=== PATIENT | female | born 1980 | race Caucasian/White ===

== ENCOUNTER 2020-12-07 06:34 | Inpatient (IN) ==
[2020-12-05 16:30] LABS: Basophils % 0.4 % (0.0-0.8); Eosinophils # 0.4 10*3/uL (0.0-0.87); Eosinophils % 3.4 % (0.00-10.9); Hematocrit 35.9 VOL% (35.7-47.0); Hemoglobin 11.7 GM/DL (12.0-16.0); Immature Granulocytes % 0.5 %; Immature Granulocytes Absolute 0.06 #; Lymphocytes # 2.1 10*3/uL (1.4-4.0); Lymphocytes % 18.5 % (21.3-54.2); Mean Corpuscular HGB Conc 32.6 GM/DL (32-36); Mean Corpuscular Volume 84.9 FL (87-102); Mean Platelet Volume 10.5 FL (9.6-12.0); Monocytes % 8.7 % (1.7-12.7); Neutrophils % 68.5 % (38.7-73.9); Platelet Count 320 T/CUMM (130-400); Red Blood Count 4.23 MC/CUMM (3.8-5.5); Red Cell Distribution Width 12.5 % (9.3-17.3); White Blood Count 11.3 T/CUMM (4-12)
[2020-12-05 16:54] LABS: Calcium 8.6 MG/DL (8.5-10.1); Osmolality,Calculated 268.8 MOS/KG (273-304); Potassium 3.3 MMOL/L (3.5-5.1)
[2020-12-05 17:06] LABS: PT Patient Result 10.4 SECS (9.8-11.9); Partial Thromboplastin Time 34.5 SECS (23.9-33.8)
[~2020-12-07 06:34] MED LIST: VANCOMYCIN INJ 1,000 MG in SODIUM CHLORIDE 0.9% 250 ML IV ONE
[2020-12-07] MEDS ORDERED: DIAZEPAM 5 MG TABLET PO ONE (06:52)
[2020-12-07] MEDS ORDERED: GABAPENTIN 400 MG CAPSULE PO ONE (06:52)
[2020-12-07] MEDS ORDERED: ALBUTEROL 2.5 MG/3 ML NEB RESP TX ONE (06:52)
[2020-12-07] MEDS ORDERED: ACETAMINOPHEN 500 MG TABLET PO ONE (06:52)
[2020-12-07] MEDS ORDERED: FAMOTIDINE 20 MG TABLET PO ONE (06:52)
[2020-12-07] MEDS ORDERED: LACTATED RINGERS 1,000 ML IV SCH (07:00)
[2020-12-07] MEDS ORDERED: LIDOCAINE 2% 5 ML VIAL ONE (08:56)
[2020-12-07] MEDS ORDERED: propofoL 200 MG/20 ML VIAL IV ONE (08:56)
[2020-12-07] MEDS ORDERED: MIDAZOLAM 2 MG/2 ML VIAL ONE (08:56)
[2020-12-07] MEDS ORDERED: fentaNYL 100 MCG/2 ML VIAL ONE (08:56)
[2020-12-07] MEDS ORDERED: ONDANSETRON 4 MG/2 ML VIAL ONE (10:09)
[2020-12-07] MEDS ORDERED: HYDROmorphone 2 MG/1 ML VIAL ONE (10:11)
[2020-12-07] MEDS ORDERED: SEVOFLURANE 1 UNIT/15 MINUTE INH ONE (10:27)
[2020-12-07] MEDS ORDERED: ONDANSETRON 4 MG/2 ML VIAL IV PRN ×2 (10:34→11:18)
[2020-12-07] MEDS ORDERED: ACETAMINOPHEN 325 MG TABLET PO PRN (10:34)
[2020-12-07] MEDS ORDERED: hydrALAZINE 20 MG/1 ML VIAL ONE (11:01)
[2020-12-07] MEDS ORDERED: hydrALAZINE 20 MG/1 ML VIAL IV ONE ×2 (11:04→11:18)
[2020-12-07] MEDS ORDERED: HYDROmorphone 2 MG/1 ML VIAL IV PRN (11:18)
[2020-12-07] MEDS ORDERED: traMADol 50 MG TABLET PO PRN (13:16)
[2020-12-07] MEDS: CLINDAMYCIN INJ 900 MG in PREMIX 1 EACH IV SCH (16:06)
[2020-12-07] MEDS: HYDROmorphone 2 MG/1 ML VIAL IV PRN (22:05)
[2020-12-08] MEDS: LACTATED RINGERS 1,000 ML IV SCH ×3 (00:17→18:33)
[2020-12-08] MEDS: CLINDAMYCIN INJ 900 MG in PREMIX 1 EACH IV SCH (00:17)
[2020-12-08] MEDS: HYDROmorphone 2 MG/1 ML VIAL IV PRN ×4 (03:02→18:42)
[2020-12-08 08:42] LABS: Basophils % 0.3 % (0.0-0.8); Eosinophils # 0.3 10*3/uL (0.0-0.87); Eosinophils % 2.2 % (0.00-10.9); Hematocrit 35.1 VOL% (35.7-47.0); Hemoglobin 11.4 GM/DL (12.0-16.0); Immature Granulocytes % 0.4 %; Immature Granulocytes Absolute 0.05 #; Lymphocytes # 2.2 10*3/uL (1.4-4.0); Mean Corpuscular HGB Conc 32.5 GM/DL (32-36); Mean Corpuscular Volume 85.2 FL (87-102); Mean Platelet Volume 10.3 FL (9.6-12.0); Monocytes % 9.5 % (1.7-12.7); Neutrophils % 68.6 % (38.7-73.9); Platelet Count 242 T/CUMM (130-400); Red Blood Count 4.12 MC/CUMM (3.8-5.5); Red Cell Distribution Width 12.9 % (9.3-17.3); White Blood Count 11.7 T/CUMM (4-12)
[2020-12-08 08:56] LABS: Calcium 8.7 MG/DL (8.5-10.1); Potassium 3.5 MMOL/L (3.5-5.1)
[2020-12-08] MEDS: PANTOPRAZOLE 40 MG TABLET PO SCH (09:16)
[2020-12-08] MEDS: ENOXAPARIN 40 MG/0.4 ML SYRINGE SUBCUT SCH (09:16)
[2020-12-08] MEDS ORDERED: HYDROmorphone 2 MG/1 ML VIAL IV ONE (11:30)
[2020-12-08] MEDS: KETOROLAC 15 MG/1 ML VIAL IV SCH ×3 (11:52→23:48)
[2020-12-08] MEDS: POLYETHYLENE GLYCOL POWDER 17 GM PACK PO PRN (15:18)
[2020-12-08] MEDS: DOCUSATE SODIUM 100 MG CAPSULE PO PRN (15:19)
[2020-12-08] MEDS: GABAPENTIN 300 MG CAPSULE PO SCH ×2 (15:19→20:19)
[2020-12-08] MEDS: hydrALAZINE 20 MG/1 ML VIAL IV PRN (22:05)
[2020-12-09] MEDS: LACTATED RINGERS 1,000 ML IV SCH ×4 (00:03→23:53)
[2020-12-09] MEDS: KETOROLAC 15 MG/1 ML VIAL IV SCH ×3 (05:18→17:55)
[2020-12-09] MEDS: ENOXAPARIN 40 MG/0.4 ML SYRINGE SUBCUT SCH (08:23)
[2020-12-09] MEDS: PANTOPRAZOLE 40 MG TABLET PO SCH (08:23)
[2020-12-09] MEDS: DOCUSATE SODIUM 100 MG CAPSULE PO PRN (08:23)
[2020-12-09] MEDS: GABAPENTIN 300 MG CAPSULE PO SCH ×3 (08:23→20:26)
[2020-12-09 12:28] LABS: Basophils % 0.4 % (0.0-0.8); Eosinophils # 0.2 10*3/uL (0.0-0.87); Eosinophils % 2.2 % (0.00-10.9); Hematocrit 33.6 VOL% (35.7-47.0); Hemoglobin 10.6 GM/DL (12.0-16.0); Immature Granulocytes % 0.3 %; Immature Granulocytes Absolute 0.03 #; Lymphocytes # 2.4 10*3/uL (1.4-4.0); Lymphocytes % 24.4 % (21.3-54.2); Mean Corpuscular HGB Conc 31.5 GM/DL (32-36); Mean Corpuscular Volume 89.6 FL (87-102); Mean Platelet Volume 10.7 FL (9.6-12.0); Monocytes % 7.9 % (1.7-12.7); Neutrophils % 64.8 % (38.7-73.9); Platelet Count 270 T/CUMM (130-400); Red Blood Count 3.75 MC/CUMM (3.8-5.5); Red Cell Distribution Width 12.9 % (9.3-17.3); White Blood Count 9.7 T/CUMM (4-12)
[2020-12-09] MEDS: HYDROmorphone 2 MG/1 ML VIAL IV PRN ×2 (12:29→17:55)
[2020-12-09] MEDS: POLYETHYLENE GLYCOL POWDER 17 GM PACK PO PRN (12:29)
[2020-12-09 12:47] LABS: Calcium 8.3 MG/DL (8.5-10.1); Osmolality,Calculated 270.8 MOS/KG (273-304); Potassium 3.4 MMOL/L (3.5-5.1)
[2020-12-09 13:03] LABS: Eosinophils 4 % (0-10); Lymphocytes 20 % (20-55); Segmented Neutrophils 69 % (50-85); Total Cells Counted 100
[2020-12-09 13:05] LABS: Anisocytosis 1+; Atypical Lymphocytes Few; Microcytosis 1+; Platelet Estimate Normal; Polychromasia Slight
[2020-12-09] MEDS: HEPARIN DRIP 25,000 UNITS/500 ML PREMIX IV SCH (13:13)
[2020-12-09] MEDS ORDERED: BISACODYL 10 MG SUPP RECTAL PRN (18:19)
[2020-12-10] MEDS: HYDROmorphone 2 MG/1 ML VIAL IV PRN ×6 (00:19→23:56)
[2020-12-10] MEDS: KETOROLAC 15 MG/1 ML VIAL IV SCH ×5 (00:19→23:56)
[2020-12-10] MEDS: GABAPENTIN 400 MG CAPSULE PO SCH ×3 (09:07→20:45)
[2020-12-10] MEDS: ASPIRIN EC 81 MG TABLET PO SCH (09:09)
[2020-12-10] MEDS: DOCUSATE SODIUM 100 MG CAPSULE PO PRN (09:09)
[2020-12-10] MEDS: PANTOPRAZOLE 40 MG TABLET PO SCH (09:09)
[2020-12-10] MEDS: POLYETHYLENE GLYCOL POWDER 17 GM PACK PO PRN (09:10)
[2020-12-10 10:29] LABS: Calcium 8.6 MG/DL (8.5-10.1)
[2020-12-10] MEDS: HEPARIN DRIP 25,000 UNITS/500 ML PREMIX IV SCH (10:43)
[2020-12-10] MEDS: LACTATED RINGERS 1,000 ML IV SCH ×2 (10:59→16:50)
[2020-12-10 16:11] LABS: Basophils # 0.1 10*3/uL (0.0-0.2); Basophils % 0.5 % (0.0-0.8); Eosinophils # 0.4 10*3/uL (0.0-0.87); Eosinophils % 3.7 % (0.00-10.9); Hematocrit 34.4 VOL% (35.7-47.0); Hemoglobin 10.5 GM/DL (12.0-16.0); Immature Granulocytes % 0.5 %; Immature Granulocytes Absolute 0.05 #; Lymphocytes # 2.8 10*3/uL (1.4-4.0); Lymphocytes % 28.7 % (21.3-54.2); Mean Corpuscular HGB Conc 30.5 GM/DL (32-36); Mean Corpuscular Volume 89.8 FL (87-102); Mean Platelet Volume 10.6 FL (9.6-12.0); Monocytes % 7.4 % (1.7-12.7); Neutrophils % 59.2 % (38.7-73.9); Platelet Count 285 T/CUMM (130-400); Red Blood Count 3.83 MC/CUMM (3.8-5.5); Red Cell Distribution Width 12.9 % (9.3-17.3); White Blood Count 9.9 T/CUMM (4-12)
[2020-12-10 16:47] LABS: Atypical Lymphocytes Few; Eosinophils 3 % (0-10); Hypochromasia 1+; Lymphocytes 28 % (20-55); Platelet Estimate Adequate; Segmented Neutrophils 61 % (50-85); Total Cells Counted 100
[2020-12-11] MEDS: LACTATED RINGERS 1,000 ML IV SCH ×3 (02:07→17:14)
[2020-12-11] MEDS: HYDROmorphone 2 MG/1 ML VIAL IV PRN ×7 (04:05→22:41)
[2020-12-11] MEDS: KETOROLAC 15 MG/1 ML VIAL IV SCH ×3 (06:20→17:08)
[2020-12-11] MEDS: PANTOPRAZOLE 40 MG TABLET PO SCH (11:17)
[2020-12-11] MEDS: ASPIRIN EC 81 MG TABLET PO SCH (11:17)
[2020-12-11] MEDS: GABAPENTIN 400 MG CAPSULE PO SCH ×3 (11:17→20:29)
[2020-12-11] MEDS: SODIUM CHLORIDE 0.45% 1,000 ML IV SCH (14:02)
[2020-12-11] MEDS ORDERED: DIAZEPAM 5 MG TABLET PO ONE (15:57)
[2020-12-12] MEDS: KETOROLAC 15 MG/1 ML VIAL IV SCH ×5 (00:16→23:37)
[2020-12-12] MEDS: HYDROmorphone 2 MG/1 ML VIAL IV PRN ×6 (03:47→22:49)
[2020-12-12] MEDS: LACTATED RINGERS 1,000 ML IV SCH ×4 (04:25→21:55)
[2020-12-12] MEDS ORDERED: VANCOMYCIN INJ 1,000 MG in SODIUM CHLORIDE 0.9% 250 ML IV ONE (08:25)
[2020-12-12] MEDS: PANTOPRAZOLE 40 MG TABLET PO SCH (09:00)
[2020-12-12] MEDS ORDERED: MIDAZOLAM 2 MG/2 ML VIAL IV ONE (09:00)
[2020-12-12] MEDS: GABAPENTIN 400 MG CAPSULE PO SCH ×3 (09:00→20:45)
[2020-12-12] MEDS ORDERED: fentaNYL 100 MCG/2 ML VIAL IV ONE (09:00)
[2020-12-12] MEDS: ASPIRIN EC 81 MG TABLET PO SCH (09:00)
[2020-12-12] MEDS ORDERED: HEPARIN/NACL 0.9% 2 UNITS/ML 2,000 ML IV ONE (11:12)
[2020-12-12] MEDS ORDERED: HEPARIN 5,000 UNIT/1 ML VIAL ONE (11:46)
[2020-12-12] MEDS: HEPARIN DRIP 25,000 UNITS/500 ML PREMIX IV SCH (12:07)
[2020-12-12] MEDS ORDERED: diphenhydrAMINE 50 MG/1 ML VIAL ONE (12:45)
[2020-12-12] MEDS ORDERED: HEPARIN 5,000 UNIT/1 ML VIAL IV ONE (13:05)
[2020-12-12] MEDS ORDERED: NITROGLYCERIN DRIP 50 MG/250 ML BOTTLE IV ONE (13:09)
[2020-12-12] MEDS ORDERED: diphenhydrAMINE 50 MG/1 ML VIAL IV ONE (13:51)
[2020-12-12] MEDS: SODIUM CHLORIDE 0.45% 1,000 ML IV SCH (17:13)
[2020-12-13] MEDS: HYDROmorphone 2 MG/1 ML VIAL IV PRN ×5 (04:15→21:59)
[2020-12-13] MEDS: KETOROLAC 15 MG/1 ML VIAL IV SCH (05:26)
[2020-12-13] MEDS: LACTATED RINGERS 1,000 ML IV SCH (05:47)
[2020-12-13] MEDS: POLYETHYLENE GLYCOL POWDER 17 GM PACK PO PRN (06:28)
[2020-12-13] MEDS: ASPIRIN EC 81 MG TABLET PO SCH (09:00)
[2020-12-13] MEDS: PANTOPRAZOLE 40 MG TABLET PO SCH (09:05)
[2020-12-13] MEDS: GABAPENTIN 400 MG CAPSULE PO SCH ×3 (09:26→20:48)
[2020-12-13] MEDS: cilostazoL 50 MG TABLET PO SCH ×2 (11:00→20:49)
[2020-12-13] MEDS ORDERED: HEPARIN DRIP 25,000 UNITS/500 ML PREMIX IV SCH (15:00)
[2020-12-13] MEDS: HEPARIN DRIP 25,000 UNITS/500 ML PREMIX IV SCH (19:11)
[2020-12-13] MEDS: SODIUM CHLORIDE 0.45% 1,000 ML IV SCH (19:13)
[2020-12-13] MEDS: hydrALAZINE 20 MG/1 ML VIAL IV PRN (20:52)
[2020-12-14] MEDS: HYDROmorphone 2 MG/1 ML VIAL IV PRN ×4 (01:46→10:21)
[2020-12-14 07:30] LABS: PT Patient Result 10.3 SECS (9.8-11.9); Partial Thromboplastin Time 41.6 SECS (23.9-33.8)
[2020-12-14] MEDS ORDERED: amLODIPine 5 MG TABLET PO SCH (09:00)
[2020-12-14] MEDS ORDERED: amLODIPine 10 MG TABLET PO SCH (09:00)
[2020-12-14] MEDS: cilostazoL 50 MG TABLET PO SCH (10:19)
[2020-12-14] MEDS: GABAPENTIN 400 MG CAPSULE PO SCH (10:19)
[2020-12-14] MEDS: ASPIRIN EC 81 MG TABLET PO SCH (10:19)
[2020-12-14] MEDS: PANTOPRAZOLE 40 MG TABLET PO SCH (10:20)
[2020-12-14 11:37] VITALS: BP 153/101
[2020-12-14] MEDS ORDERED: traMADol 50 MG TABLET PO PRN (14:00)
== END 2020-12-14 13:30 | disposition home health service (06) | DRG 254 ==
LOC: N.SDSINP 06:34 → N.OR 06:34 → N.SDSINP 06:35 → N.3E 12:00
PROVIDERS: ADMIT Student in an Organized Health Care Education/Training Program; ATTEND Student in an Organized Health Care Education/Training Program

== ENCOUNTER 2020-12-20 07:52 | Inpatient (IN) ==
[~2020-12-20 07:52] MED LIST changes: +ACETAMINOPHEN 500 MG TABLET PO ONE; +FAMOTIDINE 20 MG TABLET PO ONE; +GABAPENTIN 400 MG CAPSULE PO ONE; +LACTATED RINGERS 1,000 ML IV SCH
[2020-12-20] MEDS ORDERED: HYDROmorphone 2 MG/1 ML VIAL ONE (08:29)
[2020-12-20] MEDS ORDERED: HYDROmorphone 2 MG/1 ML VIAL IV STA (08:38)
[2020-12-20] MEDS ORDERED: ONDANSETRON 4 MG/2 ML VIAL IV PRN (09:34)
[2020-12-20] MEDS ORDERED: HYDROmorphone 2 MG/1 ML VIAL IV PRN (09:34)
[2020-12-20] MEDS ORDERED: ACETAMINOPHEN 325 MG TABLET PO PRN (09:34)
[2020-12-20] MEDS: ENOXAPARIN 40 MG/0.4 ML SYRINGE SUBCUT SCH (11:14)
[2020-12-20] MEDS: PIPERACILLIN/TAZOBACTAM 3,375 MG in SODIUM CHLORIDE 0.9% 100 ML IV SCH ×2 (11:50→18:53)
[2020-12-20] MEDS: oxyCODONE/ACETAMINOPHEN 5-325 MG TABLET PO PRN ×2 (11:50→17:42)
[2020-12-20] MEDS: GABAPENTIN 400 MG CAPSULE PO SCH ×2 (14:39→19:59)
[2020-12-20] MEDS: VANCOMYCIN INJ 1,250 MG in SODIUM CHLORIDE 0.9% 500 ML IV SCH (14:48)
[2020-12-20] MEDS ORDERED: HYDROmorphone 2 MG/1 ML VIAL IM PRN (18:37)
[2020-12-20] MEDS: HYDROmorphone 2 MG/1 ML VIAL IV PRN ×2 (19:45→22:28)
[2020-12-21] MEDS: oxyCODONE/ACETAMINOPHEN 5-325 MG TABLET PO PRN ×4 (00:34→21:07)
[2020-12-21] MEDS: HYDROmorphone 2 MG/1 ML VIAL IV PRN ×5 (02:02→22:42)
[2020-12-21] MEDS: VANCOMYCIN INJ 1,250 MG in SODIUM CHLORIDE 0.9% 500 ML IV SCH ×2 (02:02→15:09)
[2020-12-21] MEDS: PIPERACILLIN/TAZOBACTAM 3,375 MG in SODIUM CHLORIDE 0.9% 100 ML IV SCH ×3 (04:27→20:10)
[2020-12-21 05:41] LABS: Basophils # 0.1 10*3/uL (0.0-0.2); Basophils % 0.6 % (0.0-0.8); Eosinophils # 0.2 10*3/uL (0.0-0.87); Eosinophils % 1.9 % (0.00-10.9); Hematocrit 32.5 VOL% (35.7-47.0); Hemoglobin 10.5 GM/DL (12.0-16.0); Immature Granulocytes % 1.1 %; Immature Granulocytes Absolute 0.12 #; Lymphocytes # 2.8 10*3/uL (1.4-4.0); Lymphocytes % 25.5 % (21.3-54.2); Mean Corpuscular HGB Conc 32.3 GM/DL (32-36); Mean Corpuscular Volume 85.5 FL (87-102); Monocytes % 10.4 % (1.7-12.7); Neutrophils % 60.5 % (38.7-73.9); Platelet Count 240 T/CUMM (130-400); White Blood Count 10.8 T/CUMM (4-12)
[2020-12-21 06:09] LABS: Atypical Lymphocytes Few; Eosinophils 2 % (0-10); Hypochromasia 1+; Lymphocytes 32 % (20-55); Microcytosis 1+; Platelet Estimate Adequate; Segmented Neutrophils 53 % (50-85); Total Cells Counted 100
[2020-12-21 06:27] LABS: Calcium 8.6 MG/DL (8.5-10.1); Osmolality,Calculated 265.2 MOS/KG (273-304); Potassium 3.9 MMOL/L (3.5-5.1)
[2020-12-21] MEDS ORDERED: NALOXONE 0.4 MG/ML VIAL IV PRN (08:23)
[2020-12-21] MEDS: GABAPENTIN 400 MG CAPSULE PO SCH (08:44)
[2020-12-21] MEDS: PANTOPRAZOLE 40 MG TABLET PO SCH (10:08)
[2020-12-21] MEDS: HYDROmorphone PCA 30 MG/30 ML SYRINGE IV SCH (11:01)
[2020-12-21] MEDS: ENOXAPARIN 40 MG/0.4 ML SYRINGE SUBCUT SCH (11:05)
[2020-12-21] MEDS ORDERED: GABAPENTIN 400 MG CAPSULE PO SCH (15:00)
[2020-12-21] MEDS: GABAPENTIN 600 MG TABLET PO SCH ×2 (15:08→20:04)
[2020-12-22] MEDS: VANCOMYCIN INJ 1,250 MG in SODIUM CHLORIDE 0.9% 500 ML IV SCH ×2 (02:08→17:18)
[2020-12-22] MEDS: PIPERACILLIN/TAZOBACTAM 3,375 MG in SODIUM CHLORIDE 0.9% 100 ML IV SCH ×3 (04:36→20:13)
[2020-12-22 05:36] LABS: Basophils % 0.3 % (0.0-0.8); Eosinophils # 0.1 10*3/uL (0.0-0.87); Hematocrit 32.1 VOL% (35.7-47.0); Hemoglobin 10.1 GM/DL (12.0-16.0); Immature Granulocytes Absolute 0.11 #; Lymphocytes # 2.3 10*3/uL (1.4-4.0); Lymphocytes % 19.7 % (21.3-54.2); Mean Corpuscular HGB Conc 31.5 GM/DL (32-36); Mean Corpuscular Volume 86.5 FL (87-102); Mean Platelet Volume 9.9 FL (9.6-12.0); Platelet Count 237 T/CUMM (130-400); Red Blood Count 3.71 MC/CUMM (3.8-5.5); Red Cell Distribution Width 12.9 % (9.3-17.3); White Blood Count 11.6 T/CUMM (4-12)
[2020-12-22 06:02] LABS: Hypochromasia 1+; Microcytosis 1+; Platelet Estimate Normal
[2020-12-22 06:11] LABS: Calcium 8.7 MG/DL (8.5-10.1); Potassium 3.7 MMOL/L (3.5-5.1)
[2020-12-22] MEDS: HYDROmorphone 2 MG/1 ML VIAL IV PRN ×3 (06:16→20:14)
[2020-12-22] MEDS ORDERED: CLINDAMYCIN INJ 900 MG in PREMIX 1 EACH IV ONE (07:00)
[2020-12-22] MEDS: GABAPENTIN 600 MG TABLET PO SCH ×3 (08:40→20:13)
[2020-12-22] MEDS: PANTOPRAZOLE 40 MG TABLET PO SCH (08:40)
[2020-12-22] MEDS: oxyCODONE/ACETAMINOPHEN 5-325 MG TABLET PO PRN ×2 (08:40→16:30)
[2020-12-22] MEDS: amLODIPine 10 MG TABLET PO SCH (08:40)
[2020-12-22] MEDS: HYDROmorphone PCA 30 MG/30 ML SYRINGE IV SCH (09:09)
[2020-12-22] MEDS: METOPROLOL TARTRATE 25 MG TABLET PO SCH ×2 (10:41→20:13)
[2020-12-22] MEDS: ENOXAPARIN 40 MG/0.4 ML SYRINGE SUBCUT SCH ×2 (12:32→20:33)
[2020-12-22] MEDS: POLYETHYLENE GLYCOL POWDER 17 GM PACK PO SCH (15:41)
[2020-12-22] MEDS: ROSUVASTATIN 20 MG TABLET PO SCH (20:13)
[2020-12-22 21:01] LABS: Barbiturates Screen,Urine Negative (Negative); Benzodiazepines Screen,Urine Negative (Negative); Cannabinoid Screen,Urine Positive (Negative); Opiate Screen,Urine Positive (Negative); Phencyclidine Screen,Urine Negative (Negative)
[2020-12-23] MEDS: HYDROmorphone PCA 30 MG/30 ML SYRINGE IV SCH ×2 (00:47→09:50)
[2020-12-23] MEDS: VANCOMYCIN INJ 1,250 MG in SODIUM CHLORIDE 0.9% 500 ML IV SCH ×2 (01:01→14:54)
[2020-12-23] MEDS: oxyCODONE/ACETAMINOPHEN 5-325 MG TABLET PO PRN ×2 (01:03→20:49)
[2020-12-23] MEDS: PIPERACILLIN/TAZOBACTAM 3,375 MG in SODIUM CHLORIDE 0.9% 100 ML IV SCH ×3 (03:36→18:09)
[2020-12-23] MEDS: GABAPENTIN 600 MG TABLET PO SCH ×3 (08:38→20:31)
[2020-12-23] MEDS: POLYETHYLENE GLYCOL POWDER 17 GM PACK PO SCH (08:39)
[2020-12-23] MEDS: METOPROLOL TARTRATE 25 MG TABLET PO SCH ×2 (08:39→20:30)
[2020-12-23] MEDS: PANTOPRAZOLE 40 MG TABLET PO SCH (08:39)
[2020-12-23] MEDS: amLODIPine 10 MG TABLET PO SCH (08:39)
[2020-12-23] MEDS: ENOXAPARIN 40 MG/0.4 ML SYRINGE SUBCUT SCH ×2 (08:44→20:32)
[2020-12-23] MEDS: CLORAZEPATE 3.75 MG TABLET PO PRN ×2 (10:01→20:31)
[2020-12-23] MEDS: HYDROmorphone 2 MG/1 ML VIAL IV PRN ×3 (11:14→21:46)
[2020-12-23] MEDS: VANCOMYCIN INJ 1,250 MG in SODIUM CHLORIDE 0.9% 250 ML IV SCH ×2 (20:29→22:52)
[2020-12-23] MEDS: ROSUVASTATIN 20 MG TABLET PO SCH (20:31)
[2020-12-23] MEDS ORDERED: VANCOMYCIN INJ 1,000 MG in SODIUM CHLORIDE 0.9% 250 ML IV SCH (22:00)
[2020-12-24] MEDS: PIPERACILLIN/TAZOBACTAM 3,375 MG in SODIUM CHLORIDE 0.9% 100 ML IV SCH ×3 (02:14→18:33)
[2020-12-24] MEDS: HYDROmorphone 2 MG/1 ML VIAL IV PRN ×5 (02:22→23:00)
[2020-12-24 06:51] LABS: Basophils % 0.3 % (0.0-0.8); Eosinophils # 0.1 10*3/uL (0.0-0.87); Eosinophils % 1.1 % (0.00-10.9); Hematocrit 33.7 VOL% (35.7-47.0); Hemoglobin 10.6 GM/DL (12.0-16.0); Immature Granulocytes % 0.4 %; Immature Granulocytes Absolute 0.04 #; Lymphocytes # 1.8 10*3/uL (1.4-4.0); Lymphocytes % 18.9 % (21.3-54.2); Mean Corpuscular HGB Conc 31.5 GM/DL (32-36); Mean Platelet Volume 10.5 FL (9.6-12.0); Monocytes % 10.7 % (1.7-12.7); Neutrophils % 68.6 % (38.7-73.9); Platelet Count 155 T/CUMM (130-400); Red Blood Count 3.83 MC/CUMM (3.8-5.5); Red Cell Distribution Width 12.8 % (9.3-17.3); White Blood Count 9.4 T/CUMM (4-12)
[2020-12-24 06:57] LABS: Calcium 8.8 MG/DL (8.5-10.1); Osmolality,Calculated 259.7 MOS/KG (273-304); Potassium 3.1 MMOL/L (3.5-5.1)
[2020-12-24] MEDS: HYDROmorphone PCA 30 MG/30 ML SYRINGE IV SCH (08:02)
[2020-12-24] MEDS: PANTOPRAZOLE 40 MG TABLET PO SCH (09:01)
[2020-12-24] MEDS: amLODIPine 10 MG TABLET PO SCH (09:01)
[2020-12-24] MEDS: CLORAZEPATE 3.75 MG TABLET PO PRN (09:01)
[2020-12-24] MEDS: METOPROLOL TARTRATE 25 MG TABLET PO SCH ×2 (09:01→20:07)
[2020-12-24] MEDS: GABAPENTIN 600 MG TABLET PO SCH ×3 (09:01→20:06)
[2020-12-24] MEDS: VANCOMYCIN INJ 1,250 MG in SODIUM CHLORIDE 0.9% 250 ML IV SCH ×3 (09:02→22:35)
[2020-12-24] MEDS: POLYETHYLENE GLYCOL POWDER 17 GM PACK PO SCH (09:03)
[2020-12-24] MEDS ORDERED: POTASSIUM CHLORIDE 20 MEQ TABLET PO ONE (10:32)
[2020-12-24] MEDS: oxyCODONE/ACETAMINOPHEN 5-325 MG TABLET PO PRN (11:17)
[2020-12-24] MEDS: ROSUVASTATIN 20 MG TABLET PO SCH (20:06)
[2020-12-24] MEDS: POTASSIUM CHLORIDE 20 MEQ TABLET PO PRN (21:45)
[2020-12-25] MEDS: PIPERACILLIN/TAZOBACTAM 3,375 MG in SODIUM CHLORIDE 0.9% 100 ML IV SCH ×3 (02:22→18:30)
[2020-12-25] MEDS: HYDROmorphone 2 MG/1 ML VIAL IV PRN ×5 (04:47→22:28)
[2020-12-25] MEDS: VANCOMYCIN INJ 1,250 MG in SODIUM CHLORIDE 0.9% 250 ML IV SCH ×3 (06:48→20:28)
[2020-12-25 08:07] LABS: Basophils % 0.2 % (0.0-0.8); Eosinophils % 0.3 % (0.00-10.9); Hematocrit 38.8 VOL% (35.7-47.0); Immature Granulocytes % 0.9 %; Immature Granulocytes Absolute 0.11 #; Lymphocytes # 1.9 10*3/uL (1.4-4.0); Lymphocytes % 14.9 % (21.3-54.2); Mean Corpuscular HGB Conc 30.9 GM/DL (32-36); Mean Platelet Volume 10.2 FL (9.6-12.0); Monocytes % 10.8 % (1.7-12.7); Neutrophils % 72.9 % (38.7-73.9); Platelet Count 164 T/CUMM (130-400); Red Blood Count 4.41 MC/CUMM (3.8-5.5); Red Cell Distribution Width 12.6 % (9.3-17.3); White Blood Count 12.5 T/CUMM (4-12)
[2020-12-25] MEDS ORDERED: ONDANSETRON 4 MG/2 ML VIAL ONE (09:44)
[2020-12-25] MEDS ORDERED: fentaNYL 100 MCG/2 ML VIAL ONE (09:44)
[2020-12-25] MEDS ORDERED: MIDAZOLAM 2 MG/2 ML VIAL ONE (09:44)
[2020-12-25] MEDS ORDERED: propofoL 200 MG/20 ML VIAL IV ONE (09:44)
[2020-12-25] MEDS ORDERED: LIDOCAINE 2% 5 ML VIAL ONE (09:44)
[2020-12-25] MEDS: METOPROLOL TARTRATE 25 MG TABLET PO SCH ×2 (09:46→20:28)
[2020-12-25] MEDS: amLODIPine 10 MG TABLET PO SCH (09:47)
[2020-12-25] MEDS: PANTOPRAZOLE 40 MG TABLET PO SCH (09:47)
[2020-12-25] MEDS: POLYETHYLENE GLYCOL POWDER 17 GM PACK PO SCH (09:47)
[2020-12-25] MEDS: GABAPENTIN 600 MG TABLET PO SCH ×3 (09:47→20:28)
[2020-12-25 10:02] LABS: Calcium 8.9 MG/DL (8.5-10.1); Osmolality,Calculated 263.4 MOS/KG (273-304); Potassium 3.4 MMOL/L (3.5-5.1)
[2020-12-25] MEDS ORDERED: HYDROmorphone 2 MG/1 ML VIAL ONE (10:29)
[2020-12-25] MEDS ORDERED: PHENYLEPHRINE 1 MG/10 ML SYRINGE IV ONE ×2 (11:00→11:41)
[2020-12-25] MEDS ORDERED: SEVOFLURANE 1 UNIT/15 MINUTE INH ONE ×2 (11:41)
[2020-12-25] MEDS: HYDROmorphone PCA 30 MG/30 ML SYRINGE IV SCH ×2 (17:55→18:53)
[2020-12-25] MEDS: oxyCODONE/ACETAMINOPHEN 5-325 MG TABLET PO PRN (17:56)
[2020-12-25] MEDS: ROSUVASTATIN 20 MG TABLET PO SCH (20:28)
[2020-12-26] MEDS: HYDROmorphone 2 MG/1 ML VIAL IV PRN ×6 (02:17→23:26)
[2020-12-26] MEDS: VANCOMYCIN INJ 1,250 MG in SODIUM CHLORIDE 0.9% 250 ML IV SCH ×3 (03:22→20:36)
[2020-12-26] MEDS: PIPERACILLIN/TAZOBACTAM 3,375 MG in SODIUM CHLORIDE 0.9% 100 ML IV SCH ×3 (03:22→19:27)
[2020-12-26] MEDS: oxyCODONE/ACETAMINOPHEN 5-325 MG TABLET PO PRN ×3 (04:11→16:59)
[2020-12-26 05:19] LABS: Calcium 8.7 MG/DL (8.5-10.1); Osmolality,Calculated 267.1 MOS/KG (273-304); Potassium 3.2 MMOL/L (3.5-5.1)
[2020-12-26] MEDS: POTASSIUM CHLORIDE 20 MEQ TABLET PO PRN ×2 (05:31→08:53)
[2020-12-26] MEDS: METOPROLOL TARTRATE 25 MG TABLET PO SCH ×2 (08:53→20:36)
[2020-12-26] MEDS: CLORAZEPATE 3.75 MG TABLET PO PRN ×2 (08:53→20:41)
[2020-12-26] MEDS: amLODIPine 10 MG TABLET PO SCH (08:53)
[2020-12-26] MEDS: GABAPENTIN 600 MG TABLET PO SCH ×3 (08:53→20:36)
[2020-12-26] MEDS: PANTOPRAZOLE 40 MG TABLET PO SCH (08:54)
[2020-12-26] MEDS: POLYETHYLENE GLYCOL POWDER 17 GM PACK PO SCH (08:54)
[2020-12-26] MEDS ORDERED: POTASSIUM CHLORIDE 20 MEQ TABLET PO ONE (13:30)
[2020-12-26] MEDS: HYDROmorphone PCA 30 MG/30 ML SYRINGE IV SCH (18:41)
[2020-12-26] MEDS: ROSUVASTATIN 20 MG TABLET PO SCH (20:36)
[2020-12-27] MEDS: oxyCODONE/ACETAMINOPHEN 5-325 MG TABLET PO PRN ×2 (01:11→16:44)
[2020-12-27] MEDS: HYDROmorphone 2 MG/1 ML VIAL IV PRN ×6 (02:39→22:29)
[2020-12-27] MEDS: PIPERACILLIN/TAZOBACTAM 3,375 MG in SODIUM CHLORIDE 0.9% 100 ML IV SCH ×3 (02:45→18:08)
[2020-12-27] MEDS: HYDROmorphone PCA 30 MG/30 ML SYRINGE IV SCH ×2 (03:39→07:30)
[2020-12-27] MEDS: VANCOMYCIN INJ 1,250 MG in SODIUM CHLORIDE 0.9% 250 ML IV SCH ×3 (04:25→22:25)
[2020-12-27] MEDS: METOPROLOL TARTRATE 25 MG TABLET PO SCH ×2 (08:45→21:01)
[2020-12-27] MEDS: GABAPENTIN 600 MG TABLET PO SCH ×3 (08:45→21:01)
[2020-12-27] MEDS: PANTOPRAZOLE 40 MG TABLET PO SCH (08:45)
[2020-12-27] MEDS: amLODIPine 10 MG TABLET PO SCH (08:45)
[2020-12-27] MEDS: POLYETHYLENE GLYCOL POWDER 17 GM PACK PO SCH (08:46)
[2020-12-27] MEDS: CLORAZEPATE 3.75 MG TABLET PO PRN (11:11)
[2020-12-27] MEDS: ROSUVASTATIN 20 MG TABLET PO SCH (21:01)
[2020-12-28] MEDS: oxyCODONE/ACETAMINOPHEN 5-325 MG TABLET PO PRN ×3 (00:21→14:45)
[2020-12-28] MEDS: HYDROmorphone 2 MG/1 ML VIAL IV PRN ×6 (01:34→23:12)
[2020-12-28] MEDS: PIPERACILLIN/TAZOBACTAM 3,375 MG in SODIUM CHLORIDE 0.9% 100 ML IV SCH (02:35)
[2020-12-28 07:39] LABS: Basophils # 0.1 10*3/uL (0.0-0.2); Basophils % 0.8 % (0.0-0.8); Eosinophils # 0.2 10*3/uL (0.0-0.87); Eosinophils % 1.8 % (0.00-10.9); Hematocrit 32.1 VOL% (35.7-47.0); Hemoglobin 10.3 GM/DL (12.0-16.0); Lymphocytes # 2.3 10*3/uL (1.4-4.0); Lymphocytes % 21.8 % (21.3-54.2); Mean Corpuscular HGB Conc 32.1 GM/DL (32-36); Mean Corpuscular Volume 83.6 FL (87-102); Monocytes % 10.5 % (1.7-12.7); Neutrophils % 64.1 % (38.7-73.9); Platelet Count 151 T/CUMM (130-400); Red Blood Count 3.84 MC/CUMM (3.8-5.5); White Blood Count 10.5 T/CUMM (4-12)
[2020-12-28 07:52] LABS: Calcium 9.4 MG/DL (8.5-10.1); Osmolality,Calculated 267.1 MOS/KG (273-304); Potassium 3.5 MMOL/L (3.5-5.1)
[2020-12-28 08:03] LABS: Eosinophils 2 % (0-10); Lymphocytes 17 % (20-55); Nucleated Red Blood Cells 1 (0-5); Segmented Neutrophils 67 % (50-85); Total Cells Counted 100
[2020-12-28 08:04] LABS: Hypochromasia 1+; Microcytosis 1+
[2020-12-28] MEDS: METOPROLOL TARTRATE 25 MG TABLET PO SCH ×2 (09:13→20:07)
[2020-12-28] MEDS: POLYETHYLENE GLYCOL POWDER 17 GM PACK PO SCH (09:13)
[2020-12-28] MEDS: GABAPENTIN 600 MG TABLET PO SCH ×3 (09:13→20:07)
[2020-12-28] MEDS: PANTOPRAZOLE 40 MG TABLET PO SCH (09:14)
[2020-12-28] MEDS: amLODIPine 10 MG TABLET PO SCH (09:14)
[2020-12-28] MEDS: VANCOMYCIN INJ 1,250 MG in SODIUM CHLORIDE 0.9% 250 ML IV SCH (09:15)
[2020-12-28] MEDS: POTASSIUM CHLORIDE 20 MEQ TABLET PO PRN ×2 (11:22→18:19)
[2020-12-28] MEDS: ROSUVASTATIN 20 MG TABLET PO SCH (20:07)
[2020-12-29] MEDS: oxyCODONE/ACETAMINOPHEN 5-325 MG TABLET PO PRN ×2 (00:44→10:51)
[2020-12-29] MEDS: HYDROmorphone 2 MG/1 ML VIAL IV PRN ×3 (02:32→09:13)
[2020-12-29] MEDS: POLYETHYLENE GLYCOL POWDER 17 GM PACK PO SCH (09:15)
[2020-12-29] MEDS: PANTOPRAZOLE 40 MG TABLET PO SCH (09:15)
[2020-12-29] MEDS: METOPROLOL TARTRATE 25 MG TABLET PO SCH (09:15)
[2020-12-29] MEDS: GABAPENTIN 600 MG TABLET PO SCH (09:15)
[2020-12-29] MEDS: amLODIPine 10 MG TABLET PO SCH (09:15)
[2020-12-29 11:34] VITALS: BP 120/78
== END 2020-12-29 12:30 | disposition home health service (06) | DRG 240 ==
LOC: N.OR 07:52 → N.SDSINP 07:54 → N.3E 10:04 → EDSTATUS 11:15
PROVIDERS: ADMIT Student in an Organized Health Care Education/Training Program; ATTEND Student in an Organized Health Care Education/Training Program

== ENCOUNTER 2021-01-24 16:49 | Inpatient (IN) ==
[2021-01-24] MEDS ORDERED: SODIUM CHLORIDE 0.9% 1,000 ML IV STA (16:59)
[2021-01-24] MEDS ORDERED: ONDANSETRON 4 MG/2 ML VIAL IV STA (17:08)
[2021-01-24] MEDS ORDERED: MORPHINE 4 MG/1 ML VIAL IV STA (17:08)
[2021-01-24 17:35] LABS: Basophils % 0.2 % (0.0-0.8); Eosinophils % 0.2 % (0.00-10.9); Hemoglobin 9.4 GM/DL (12.0-16.0); Immature Granulocytes % 1.5 %; Immature Granulocytes Absolute 0.27 #; Lymphocytes # 2.8 10*3/uL (1.4-4.0); Lymphocytes % 14.9 % (21.3-54.2); Mean Corpuscular HGB Conc 32.4 GM/DL (32-36); Mean Corpuscular Volume 74.9 FL (87-102); Mean Platelet Volume 10.9 FL (9.6-12.0); Monocytes % 9.7 % (1.7-12.7); Neutrophils % 73.5 % (38.7-73.9); Platelet Count 172 T/CUMM (130-400); Red Blood Count 3.87 MC/CUMM (3.8-5.5); Red Cell Distribution Width 13.7 % (9.3-17.3); White Blood Count 18.5 T/CUMM (4-12)
[2021-01-24 17:58] LABS: Alanine Aminotransferase 26 U/L (13-56); Albumin 2.3 G/DL (3.4-5.0); Alkaline Phosphatase 111 U/L (45-117); Aspartate Amino Transferase 39 U/L (0-37); Bilirubin,Total < 0.39 MG/DL (0.2-1.0); Blood Urea Nitrogen 4 MG/DL (7-18); Calcium 9.5 MG/DL (8.5-10.1); Carbon Dioxide 25 MMOL/L (21-32); Estimated Glom Filtration Rate 131 ML/MIN; Glucose 105 MG/DL (74-106); Osmolality,Calculated 245.6 MOS/KG (273-304); Potassium 2.8 MMOL/L (3.5-5.1); Sodium 124 MMOL/L (136-145); Total Protein 8.5 G/DL (6.4-8.2)
[2021-01-24] MEDS ORDERED: CLINDAMYCIN INJ 900 MG/50 ML PREMIX IV STA (18:57)
[2021-01-24] MEDS ORDERED: HYDROmorphone 2 MG/1 ML VIAL IV STA (18:57)
[2021-01-24] MEDS ORDERED: VANCOMYCIN INJ 1,000 MG in SODIUM CHLORIDE 0.9% 250 ML IV SCH ×2 (19:00→21:00)
[2021-01-24] MEDS ORDERED: ACETAMINOPHEN 325 MG TABLET PO PRN (19:00)
[2021-01-24] MEDS ORDERED: PROMETHAZINE 25 MG/1 ML VIAL IM PRN (19:00)
[2021-01-24] MEDS ORDERED: ONDANSETRON 4 MG/2 ML VIAL IV PRN (19:00)
[2021-01-24] MEDS: ALBUTEROL/IPRATROPIUM 3 ML NEB RESP TX SCH (19:20)
[2021-01-24] MEDS ORDERED: VANCOMYCIN INJ 1,750 MG in SODIUM CHLORIDE 0.9% 500 ML IV ONE (21:30)
[2021-01-24] MEDS: LACTATED RINGERS 1,000 ML IV SCH (21:41)
[2021-01-24] MEDS: oxyCODONE/ACETAMINOPHEN 5-325 MG TABLET PO PRN (21:46)
[2021-01-25] MEDS: ALBUTEROL/IPRATROPIUM 3 ML NEB RESP TX SCH ×3 (01:10→13:50)
[2021-01-25] MEDS: LACTATED RINGERS 1,000 ML IV SCH ×2 (04:23→12:02)
[2021-01-25] MEDS: oxyCODONE/ACETAMINOPHEN 5-325 MG TABLET PO PRN (05:46)
[2021-01-25 07:31] LABS: Bacteria,Urine Occasional /HPF (Few); Bilirubin,Urine Negative (Negative); Blood, Urine Small mg/dL (Negative); Glucose,Urine (UA) Negative (Negative); Ketones,Urine Negative (Negative); Mucus,Urine Occasional /LPF (Occasional); Nitrite,Urine Negative (Negative); Protein,Urine Negative; RBC,Urine 1 /HPF (0-4); Squamous Epithelial Cell,Urine Occasional /HPF (0-10); Urine Appearance CLEAR (Clear); Urine Color Yellow (Yellow); Urine Specific Gravity 1.004 (1.001-1.035); Urine Urobilinogen < 2.0 EU/DL (0.2-1.0)
[2021-01-25 07:43] LABS: Barbiturates Screen,Urine Negative (Negative); Benzodiazepines Screen,Urine Negative (Negative); Cannabinoid Screen,Urine Positive (Negative); Opiate Screen,Urine Positive (Negative); Phencyclidine Screen,Urine Negative (Negative)
[2021-01-25] MEDS: VANCOMYCIN INJ 1,000 MG in SODIUM CHLORIDE 0.9% 250 ML IV SCH ×2 (09:14→21:50)
[2021-01-25] MEDS: PANTOPRAZOLE 40 MG TABLET PO SCH (09:47)
[2021-01-25] MEDS ORDERED: POTASSIUM CHLORIDE RIDER 10 MEQ/100 ML PREMIX IV PRN (10:06)
[2021-01-25] MEDS ORDERED: oxyCODONE/ACETAMINOPHEN 5-325 MG TABLET PO PRN ×2 (10:59)
[2021-01-25] MEDS ORDERED: SODIUM CHLORIDE 0.9% 1,000 ML IV SCH (11:30)
[2021-01-25] MEDS ORDERED: propofoL 200 MG/20 ML VIAL IV ONE (12:56)
[2021-01-25] MEDS ORDERED: LIDOCAINE 2% 5 ML VIAL ONE (12:56)
[2021-01-25] MEDS ORDERED: fentaNYL 100 MCG/2 ML VIAL ONE ×2 (12:56→13:22)
[2021-01-25] MEDS ORDERED: SEVOFLURANE 1 UNIT/15 MINUTE INH ONE (12:56)
[2021-01-25] MEDS ORDERED: MIDAZOLAM 2 MG/2 ML VIAL ONE (12:57)
[2021-01-25] MEDS ORDERED: HYDROmorphone 2 MG/1 ML VIAL ONE (13:34)
[2021-01-25] MEDS ORDERED: POTASSIUM CHLORIDE RIDER 10 MEQ/100 ML PREMIX IV ONE ×2 (14:10→16:05)
[2021-01-25] MEDS ORDERED: NALOXONE 0.4 MG/ML VIAL IV PRN (14:30)
[2021-01-25] MEDS ORDERED: DEXTROSE 5% NACL 0.9% 1,000 ML IV SCH (14:30)
[2021-01-25] MEDS ORDERED: KETOROLAC 10 MG TABLET PO PRN (14:30)
[2021-01-25] MEDS ORDERED: BISACODYL 5 MG TABLET PO PRN (14:30)
[2021-01-25] MEDS ORDERED: ONDANSETRON 4 MG/2 ML VIAL IV PRN ×2 (14:30→14:43)
[2021-01-25 14:37] LABS: Bilirubin,Urine Negative (Negative); Blood, Urine Negative (Negative); Glucose,Urine (UA) Negative (Negative); Ketones,Urine Negative (Negative); Mucus,Urine Occasional /LPF (Occasional); Nitrite,Urine Negative (Negative); Protein,Urine Negative; RBC,Urine <1 /HPF (0-4); Squamous Epithelial Cell,Urine Occasional /HPF (0-10); Urine Appearance CLEAR (Clear); Urine Color Yellow (Yellow); Urine Specific Gravity 1.006 (1.001-1.035); Urine Urobilinogen < 2.0 EU/DL (0.2-1.0)
[2021-01-25] MEDS ORDERED: MEPERIDINE 25 MG/1 ML VIAL IV PRN (14:43)
[2021-01-25] MEDS ORDERED: PROMETHAZINE INJ 25 MG in SODIUM CHLORIDE 0.9% 50 ML IV PRN (14:43)
[2021-01-25] MEDS ORDERED: HYDROmorphone 2 MG/1 ML VIAL IV PRN (14:43)
[2021-01-25] MEDS ORDERED: diphenhydrAMINE 50 MG/1 ML VIAL IV PRN (14:43)
[2021-01-25 15:01] LABS: Hematocrit 23.3 VOL% (35.7-47.0); Hemoglobin 7.2 GM/DL (12.0-16.0)
[2021-01-25 15:15] LABS: Calcium 8.4 MG/DL (8.5-10.1); Osmolality,Calculated 264.2 MOS/KG (273-304); Potassium 2.6 MMOL/L (3.5-5.1)
[2021-01-25] MEDS: HYDROmorphone PCA 30 MG/30 ML SYRINGE IV SCH (16:00)
[2021-01-25] MEDS: DEXT 5% NACL 0.45% KCL 20 MEQ 20 MEQ/1,000 ML BAG IV SCH (16:11)
[2021-01-25] MEDS: GABAPENTIN 600 MG TABLET PO SCH ×2 (16:11→21:49)
[2021-01-25] MEDS: POTASSIUM CHLORIDE RIDER 10 MEQ/100 ML PREMIX IV PRN ×2 (16:12→18:21)
[2021-01-25] MEDS: CLINDAMYCIN INJ 900 MG/50 ML PREMIX IV SCH (19:55)
[2021-01-25] MEDS ORDERED: cilostazoL 50 MG TABLET PO SCH (21:00)
[2021-01-25] MEDS: METOPROLOL TARTRATE 25 MG TABLET PO SCH (21:49)
[2021-01-26] MEDS: ALBUTEROL/IPRATROPIUM 3 ML NEB RESP TX SCH ×5 (01:40→20:17)
[2021-01-26] MEDS: CLINDAMYCIN INJ 900 MG/50 ML PREMIX IV SCH (04:26)
[2021-01-26] MEDS: DEXT 5% NACL 0.45% KCL 20 MEQ 20 MEQ/1,000 ML BAG IV SCH ×2 (06:25→14:25)
[2021-01-26] MEDS: amLODIPine 10 MG TABLET PO SCH (08:45)
[2021-01-26] MEDS: PANTOPRAZOLE 40 MG TABLET PO SCH (08:45)
[2021-01-26] MEDS: GABAPENTIN 600 MG TABLET PO SCH ×3 (08:45→21:36)
[2021-01-26] MEDS: VANCOMYCIN INJ 1,000 MG in SODIUM CHLORIDE 0.9% 250 ML IV SCH ×2 (08:46→21:40)
[2021-01-26] MEDS: METOPROLOL TARTRATE 25 MG TABLET PO SCH ×2 (08:46→21:36)
[2021-01-26 12:24] LABS: Basophils % 0.2 % (0.0-0.8); Eosinophils % 0.2 % (0.00-10.9); Hemoglobin 7.6 GM/DL (12.0-16.0); Immature Granulocytes % 1.2 %; Immature Granulocytes Absolute 0.22 #; Lymphocytes # 2.9 10*3/uL (1.4-4.0); Mean Corpuscular HGB Conc 30.4 GM/DL (32-36); Mean Corpuscular Volume 80.9 FL (87-102); Mean Platelet Volume 10.8 FL (9.6-12.0); Monocytes % 8.9 % (1.7-12.7); Neutrophils % 73.5 % (38.7-73.9); Platelet Count 166 T/CUMM (130-400); Red Cell Distribution Width 13.9 % (9.3-17.3); White Blood Count 18.1 T/CUMM (4-12)
[2021-01-26 12:27] LABS: Red Blood Count 3.09 MC/CUMM (3.8-5.5)
[2021-01-26 12:33] LABS: INR 1.1; PT Patient Result 12.4 SECS (10.5-12.0)
[2021-01-26 12:45] LABS: Albumin 1.7 G/DL (3.4-5.0); Bilirubin,Total 0.8 MG/DL (0.2-1.0); Calcium 8.2 MG/DL (8.5-10.1); Osmolality,Calculated 261.4 MOS/KG (273-304); Potassium 2.9 MMOL/L (3.5-5.1); Total Protein 6.9 G/DL (6.4-8.2)
[2021-01-26 12:46] LABS: Band Neutrophils 2 % (0-10); Lymphocytes 18 % (20-55); Metamyelocytes 1 %; Myelocytes 1 %; Platelet Estimate Normal; Segmented Neutrophils 70 % (50-85); Total Cells Counted 100
[2021-01-26 12:47] LABS: Anisocytosis Slight
[2021-01-26] MEDS: POTASSIUM CHLORIDE 20 MEQ TABLET PO PRN ×2 (21:37→22:59)
[2021-01-27] MEDS: ALBUTEROL/IPRATROPIUM 3 ML NEB RESP TX SCH ×4 (00:03→19:26)
[2021-01-27] MEDS: POTASSIUM CHLORIDE 20 MEQ TABLET PO PRN ×2 (00:26→00:51)
[2021-01-27] MEDS: PANTOPRAZOLE 40 MG TABLET PO SCH (09:45)
[2021-01-27] MEDS: GABAPENTIN 600 MG TABLET PO SCH ×3 (09:45→21:05)
[2021-01-27] MEDS: amLODIPine 10 MG TABLET PO SCH (09:45)
[2021-01-27] MEDS: METOPROLOL TARTRATE 25 MG TABLET PO SCH ×2 (09:45→21:05)
[2021-01-27] MEDS: VANCOMYCIN INJ 1,000 MG in SODIUM CHLORIDE 0.9% 250 ML IV SCH ×2 (09:46→18:17)
[2021-01-27] MEDS ORDERED: diphenhydrAMINE CAP 25 MG CAPSULE PO PRN (11:56)
[2021-01-28] MEDS: ALBUTEROL/IPRATROPIUM 3 ML NEB RESP TX SCH ×4 (01:03→19:09)
[2021-01-28] MEDS: VANCOMYCIN INJ 1,000 MG in SODIUM CHLORIDE 0.9% 250 ML IV SCH ×3 (02:05→17:10)
[2021-01-28] MEDS: ZINC OXIDE PASTE 113 GM TUBE TOP PRN ×3 (02:07→20:53)
[2021-01-28] MEDS: GABAPENTIN 600 MG TABLET PO SCH ×3 (09:26→20:53)
[2021-01-28] MEDS: amLODIPine 10 MG TABLET PO SCH (09:26)
[2021-01-28] MEDS: PANTOPRAZOLE 40 MG TABLET PO SCH (09:26)
[2021-01-28] MEDS: METOPROLOL TARTRATE 25 MG TABLET PO SCH ×2 (09:26→20:53)
[2021-01-28] MEDS: HYDROmorphone PCA 30 MG/30 ML SYRINGE IV SCH (09:50)
[2021-01-28] MEDS: NYSTATIN/TRIAMCINOLONE CREAM 15 GM TUBE TOP SCH ×2 (14:28→20:53)
[2021-01-28] MEDS: FLUCONAZOLE 150 MG TABLET PO SCH (14:28)
[2021-01-29] MEDS: ALBUTEROL/IPRATROPIUM 3 ML NEB RESP TX SCH ×4 (00:34→19:31)
[2021-01-29] MEDS: VANCOMYCIN INJ 1,000 MG in SODIUM CHLORIDE 0.9% 250 ML IV SCH ×3 (03:11→17:49)
[2021-01-29 06:06] LABS: Basophils % 0.2 % (0.0-0.8); Eosinophils # 0.2 10*3/uL (0.0-0.87); Eosinophils % 1.3 % (0.00-10.9); Hematocrit 23.1 VOL% (35.7-47.0); Hemoglobin 7.2 GM/DL (12.0-16.0); Lymphocytes # 1.6 10*3/uL (1.4-4.0); Mean Corpuscular HGB Conc 31.2 GM/DL (32-36); Mean Corpuscular Volume 78.6 FL (87-102); Mean Platelet Volume 12.2 FL (9.6-12.0); Monocytes % 7.2 % (1.7-12.7); Neutrophils % 78.3 % (38.7-73.9); Red Blood Count 2.94 MC/CUMM (3.8-5.5); Red Cell Distribution Width 14.2 % (9.3-17.3); White Blood Count 14.7 T/CUMM (4-12)
[2021-01-29 06:07] LABS: Platelet Count 109 T/CUMM (130-400)
[2021-01-29 06:11] LABS: Calcium 8.6 MG/DL (8.5-10.1); Osmolality,Calculated 265.2 MOS/KG (273-304); Potassium 3.7 MMOL/L (3.5-5.1)
[2021-01-29 06:33] LABS: Hypochromasia 2+; Microcytosis 1+
[2021-01-29] MEDS: ZINC OXIDE PASTE 113 GM TUBE TOP PRN (08:38)
[2021-01-29] MEDS: NYSTATIN/TRIAMCINOLONE CREAM 15 GM TUBE TOP SCH ×2 (08:38→20:57)
[2021-01-29] MEDS: amLODIPine 10 MG TABLET PO SCH (08:38)
[2021-01-29] MEDS: METOPROLOL TARTRATE 25 MG TABLET PO SCH ×2 (08:38→20:56)
[2021-01-29] MEDS: PANTOPRAZOLE 40 MG TABLET PO SCH (08:38)
[2021-01-29] MEDS: GABAPENTIN 600 MG TABLET PO SCH ×3 (08:38→20:56)
[2021-01-29] MEDS: FLUCONAZOLE 150 MG TABLET PO SCH (08:40)
[2021-01-29] MEDS ORDERED: SODIUM CHLORIDE 0.9% 1,000 ML IV PRN (18:08)
[2021-01-30] MEDS: ALBUTEROL/IPRATROPIUM 3 ML NEB RESP TX SCH ×4 (01:47→19:40)
[2021-01-30] MEDS: VANCOMYCIN INJ 1,000 MG in SODIUM CHLORIDE 0.9% 250 ML IV SCH (03:55)
[2021-01-30] MEDS ORDERED: oxyCODONE/ACETAMINOPHEN 5-325 MG TABLET PO PRN (09:04)
[2021-01-30 10:04] LABS: Calcium 8.4 MG/DL (8.5-10.1); Osmolality,Calculated 262.5 MOS/KG (273-304); Potassium 3.8 MMOL/L (3.5-5.1)
[2021-01-30] MEDS: LEVOFLOXACIN 750 MG TABLET PO SCH (10:38)
[2021-01-30] MEDS: GABAPENTIN 600 MG TABLET PO SCH ×3 (10:39→21:30)
[2021-01-30 10:46] LABS: Basophils # 0.1 10*3/uL (0.0-0.2); Basophils % 0.3 % (0.0-0.8); Eosinophils # 0.1 10*3/uL (0.0-0.87); Eosinophils % 0.5 % (0.00-10.9); Hematocrit 30.2 VOL% (35.7-47.0); Immature Granulocytes % 3.1 %; Immature Granulocytes Absolute 0.52 #; Lymphocytes # 2.1 10*3/uL (1.4-4.0); Lymphocytes % 12.3 % (21.3-54.2); Mean Corpuscular HGB Conc 31.5 GM/DL (32-36); Mean Corpuscular Volume 78.9 FL (87-102); Mean Platelet Volume 12.5 FL (9.6-12.0); Monocytes % 8.2 % (1.7-12.7); Neutrophils % 75.6 % (38.7-73.9); Red Cell Distribution Width 14.9 % (9.3-17.3)
[2021-01-30 10:48] LABS: Hemoglobin 9.5 GM/DL (12.0-16.0); Platelet Count 86 T/CUMM (130-400); Red Blood Count 3.83 MC/CUMM (3.8-5.5)
[2021-01-30] MEDS: amLODIPine 10 MG TABLET PO SCH (10:49)
[2021-01-30] MEDS: METOPROLOL TARTRATE 25 MG TABLET PO SCH ×2 (10:49→21:30)
[2021-01-30] MEDS: PANTOPRAZOLE 40 MG TABLET PO SCH (10:50)
[2021-01-30] MEDS: TAMSULOSIN 0.4 MG CAPSULE PO SCH (10:50)
[2021-01-30] MEDS: NYSTATIN/TRIAMCINOLONE CREAM 15 GM TUBE TOP SCH ×2 (10:52→21:31)
[2021-01-30 11:03] LABS: Band Neutrophils 1 % (0-10); Lymphocytes 19 % (20-55); Platelet Estimate Decreased; Segmented Neutrophils 74 % (50-85); Total Cells Counted 100
[2021-01-30 11:04] LABS: Hypochromasia 1+; Microcytosis 1+
[2021-01-30] MEDS: ZINC OXIDE PASTE 113 GM TUBE TOP PRN (11:05)
[2021-01-30] MEDS: FLUCONAZOLE 150 MG TABLET PO SCH (11:20)
[2021-01-30] MEDS: oxyCODONE/ACETAMINOPHEN 5-325 MG TABLET PO PRN (12:30)
[2021-01-30] MEDS: HYDROmorphone 2 MG/1 ML VIAL IV PRN ×2 (13:47→21:24)
[2021-01-31] MEDS: ALBUTEROL/IPRATROPIUM 3 ML NEB RESP TX SCH ×4 (00:42→19:45)
[2021-01-31] MEDS: HYDROmorphone 2 MG/1 ML VIAL IV PRN ×6 (03:48→21:14)
[2021-01-31] MEDS ORDERED: BISACODYL 10 MG SUPP RECTAL PRN (07:06)
[2021-01-31] MEDS: oxyCODONE/ACETAMINOPHEN 5-325 MG TABLET PO PRN (07:46)
[2021-01-31] MEDS ORDERED: MAGNESIUM SULF RIDER 4 GM/100 ML PREMIX IV PRN (08:46)
[2021-01-31] MEDS ORDERED: MAGNESIUM SULF RIDER 2 GM/50 ML PREMIX IV PRN (08:46)
[2021-01-31] MEDS: TAMSULOSIN 0.4 MG CAPSULE PO SCH (08:52)
[2021-01-31] MEDS: GABAPENTIN 600 MG TABLET PO SCH ×3 (08:53→21:14)
[2021-01-31] MEDS: FLUCONAZOLE 150 MG TABLET PO SCH (08:53)
[2021-01-31] MEDS: METOPROLOL TARTRATE 25 MG TABLET PO SCH ×2 (08:53→21:14)
[2021-01-31] MEDS: LEVOFLOXACIN 750 MG TABLET PO SCH (08:53)
[2021-01-31] MEDS: PANTOPRAZOLE 40 MG TABLET PO SCH (08:53)
[2021-01-31] MEDS: amLODIPine 10 MG TABLET PO SCH (08:54)
[2021-01-31] MEDS: POLYETHYLENE GLYCOL POWDER 17 GM PACK PO SCH (08:54)
[2021-01-31] MEDS: NYSTATIN/TRIAMCINOLONE CREAM 15 GM TUBE TOP SCH ×2 (08:54→21:14)
[2021-01-31] MEDS ORDERED: methylPREDNISolone SOD SUC 125 MG/2 ML VIAL IV ONE (16:30)
[2021-01-31] MEDS ORDERED: IMMUNE GLOBULIN 10% 20 GM in PREMIX 1 EACH IV ONE (16:30)
[2021-01-31] MEDS: ZINC OXIDE PASTE 113 GM TUBE TOP PRN (21:14)
[2021-02-01] MEDS: HYDROmorphone 2 MG/1 ML VIAL IV PRN ×4 (00:22→14:00)
[2021-02-01] MEDS: ALBUTEROL/IPRATROPIUM 3 ML NEB RESP TX SCH ×2 (01:40→07:45)
[2021-02-01 05:04] LABS: Basophils % 0.1 % (0.0-0.8); Hemoglobin 8.2 GM/DL (12.0-16.0); Immature Granulocytes % 2.9 %; Immature Granulocytes Absolute 0.39 #; Lymphocytes # 0.9 10*3/uL (1.4-4.0); Lymphocytes % 6.7 % (21.3-54.2); Mean Corpuscular HGB Conc 31.5 GM/DL (32-36); Mean Corpuscular Volume 78.5 FL (87-102); Mean Platelet Volume 12.2 FL (9.6-12.0); Monocytes % 3.4 % (1.7-12.7); Neutrophils % 86.9 % (38.7-73.9); Platelet Count 86 T/CUMM (130-400); Red Blood Count 3.31 MC/CUMM (3.8-5.5); Red Cell Distribution Width 15.1 % (9.3-17.3); White Blood Count 13.4 T/CUMM (4-12)
[2021-02-01 05:17] LABS: INR 1.1; PT Patient Result 11.8 SECS (10.5-12.0); Partial Thromboplastin Time 28.7 SECS (23.9-33.8)
[2021-02-01 05:26] LABS: Hypochromasia 1+; Microcytosis 1+
[2021-02-01 05:27] LABS: Platelet Estimate Decreased
[2021-02-01 06:02] LABS: % Iron Saturation 8.6 % (18-50); Ferritin 320.2 ng/ml (8-252)
[2021-02-01] MEDS: oxyCODONE/ACETAMINOPHEN 5-325 MG TABLET PO PRN ×2 (07:37→15:31)
[2021-02-01] MEDS ORDERED: SODIUM PHOSPHATE ENEMA 133 ML BOTTLE RECTAL ONE (08:15)
[2021-02-01] MEDS ORDERED: FLUCONAZOLE 100 MG TABLET PO SCH (09:00)
[2021-02-01] MEDS ORDERED: MAGNESIUM CITRATE 300 ML BOTTLE PO ONE (09:30)
[2021-02-01] MEDS: POLYETHYLENE GLYCOL POWDER 17 GM PACK PO SCH (10:10)
[2021-02-01] MEDS: LEVOFLOXACIN 750 MG TABLET PO SCH (10:10)
[2021-02-01] MEDS: PANTOPRAZOLE 40 MG TABLET PO SCH (10:10)
[2021-02-01] MEDS: METOPROLOL TARTRATE 25 MG TABLET PO SCH (10:11)
[2021-02-01] MEDS: amLODIPine 10 MG TABLET PO SCH (10:11)
[2021-02-01] MEDS: GABAPENTIN 600 MG TABLET PO SCH ×2 (10:11→15:31)
[2021-02-01] MEDS: TAMSULOSIN 0.4 MG CAPSULE PO SCH (10:11)
[2021-02-01] MEDS: NYSTATIN/TRIAMCINOLONE CREAM 15 GM TUBE TOP SCH (10:12)
[2021-02-01 11:39] VITALS: BP 128/73
== END 2021-02-01 15:42 | DRG 463 ==
LOC: EDUNIT# → EDBD → N.ED 16:49 → N.EDINP 19:00 → N.3E 19:30
PROVIDERS: ADMIT Student in an Organized Health Care Education/Training Program; ATTEND Surgery

== ENCOUNTER 2021-08-08 13:25 | Inpatient (IN) ==
[2021-08-08] MEDS ORDERED: SODIUM CHLORIDE 0.9% 1,000 ML IV STA ×2 (14:05→14:07)
[2021-08-08] MEDS ORDERED: LEVOFLOXACIN INJ 750 MG/150 ML PREMIX IV STA (14:07)
[2021-08-08 15:11] LABS: Basophils % 0.4 % (0.0-0.8); Eosinophils # 0.2 10*3/uL (0.0-0.87); Eosinophils % 1.3 % (0.00-10.9); Hemoglobin 11.5 GM/DL (12.0-16.0); Immature Granulocytes % 0.4 %; Immature Granulocytes Absolute 0.05 #; Lymphocytes % 26.9 % (21.3-54.2); Mean Corpuscular HGB Conc 32.9 GM/DL (32-36); Mean Corpuscular Volume 86.6 FL (87-102); Mean Platelet Volume 10.4 FL (9.6-12.0); Monocytes % 12.4 % (1.7-12.7); Neutrophils % 58.6 % (38.7-73.9); Platelet Count 175 T/CUMM (130-400); Red Blood Count 4.04 MC/CUMM (3.8-5.5); Red Cell Distribution Width 13.7 % (9.3-17.3); White Blood Count 11.2 T/CUMM (4-12)
[2021-08-08 15:14] LABS: ABG Base Excess -1.6 MMOL/L (-2.5-2.5); ABG PCO2 34.8 MM HG (35-48); ABG PH 7.415 (7.35-7.45); ABG PO2 88.6 MM HG (80-95); ABG TCO2 19.8 MMOL/L (23-27)
[2021-08-08 15:23] LABS: PT Patient Result 11.5 SECS (10.5-12.0); Partial Thromboplastin Time 35.8 SECS (23.8-32.1)
[2021-08-08 15:54] LABS: Urine Color CLEAR (Yellow)
[2021-08-08 15:55] LABS: Bilirubin,Urine 2+ mg/dL (Negative); Blood, Urine Negative (Negative); Glucose,Urine (UA) Negative (Negative); Ketones,Urine 25 mg/dL (Negative); Nitrite,Urine Negative (Negative); Protein,Urine 100 MG/DL; Urine Appearance AMBER (Clear); Urine Urobilinogen 0.2 EU/DL (0.2-1.0)
[2021-08-08 15:56] LABS: Squamous Epithelial Cell,Urine Moderate /HPF (0-10)
[2021-08-08 15:57] LABS: Bacteria,Urine Rare /HPF (Few)
[2021-08-08 16:12] LABS: Barbiturates Screen,Urine Negative (Negative); Benzodiazepines Screen,Urine Negative (Negative); Cannabinoid Screen,Urine Negative (Negative); Opiate Screen,Urine Negative (Negative); Phencyclidine Screen,Urine Negative (Negative)
[2021-08-08 16:14] LABS: Albumin 3.6 G/DL (3.4-5.0); Bilirubin,Total 1.1 MG/DL (0.20-1.00); Osmolality,Calculated 293.6 MOS/KG (273-304); Potassium 3.4 MMOL/L (3.5-5.1); Total Protein 7.6 G/DL (6.4-8.2)
[2021-08-08] MEDS ORDERED: AMPICILLIN INJ 1,000 MG in SODIUM CHLORIDE 0.9% 100 ML IV STA (18:54)
[2021-08-08] MEDS ORDERED: LORazepam 2 MG/1 ML VIAL ONE (19:17)
[2021-08-08] MEDS ORDERED: ZALEPLON 5 MG CAPSULE PO PRN (19:28)
[2021-08-08] MEDS ORDERED: guaiFENesin/DM ER 600-30 MG TABLET PO PRN (19:28)
[2021-08-08] MEDS ORDERED: diphenhydrAMINE CAP 25 MG CAPSULE PO PRN (19:28)
[2021-08-08] MEDS ORDERED: NICOTINE 21 MG/24 HR PATCH TRANSDERM PRN (19:28)
[2021-08-08] MEDS ORDERED: GLUCAGON 1 MG VIAL IM PRN (19:28)
[2021-08-08] MEDS ORDERED: ONDANSETRON 4 MG/2 ML VIAL IV PRN (19:28)
[2021-08-08] MEDS ORDERED: DOCUSATE SODIUM 100 MG CAPSULE PO PRN (19:28)
[2021-08-08] MEDS ORDERED: LORazepam 2 MG/1 ML VIAL IV STA (19:36)
[2021-08-08] MEDS ORDERED: DEXTROSE 50% 25 GM/50 ML SYRINGE IV PRN (19:39)
[2021-08-08] MEDS: ACYCLOVIR INJ 750 MG in SODIUM CHLORIDE 0.9% 250 ML IV SCH (20:15)
[2021-08-08] MEDS ORDERED: MEROPENEM 500 MG in SODIUM CHLORIDE 0.9% 100 ML IV SCH (23:00)
[2021-08-08] MEDS: VANCOMYCIN INJ 750 MG in SODIUM CHLORIDE 0.9% 250 ML IV SCH (23:40)
[2021-08-09] MEDS: HEPARIN 5,000 UNIT/1 ML VIAL SUBCUT SCH ×3 (00:28→21:37)
[2021-08-09] MEDS: AMPICILLIN INJ 2,000 MG in SODIUM CHLORIDE 0.9% 100 ML IV SCH ×2 (01:17→07:03)
[2021-08-09] MEDS: MEROPENEM 1,000 MG in SODIUM CHLORIDE 0.9% 100 ML IV SCH ×2 (01:18→07:03)
[2021-08-09] MEDS: ALBUTEROL/IPRATROPIUM 3 ML NEB RESP TX SCH ×4 (03:45→20:10)
[2021-08-09] MEDS: ACYCLOVIR INJ 750 MG in SODIUM CHLORIDE 0.9% 250 ML IV SCH (04:51)
[2021-08-09] MEDS: LORazepam 2 MG/1 ML VIAL IV PRN ×2 (05:49→21:37)
[2021-08-09 06:02] LABS: Basophils # 0.1 10*3/uL (0.0-0.2); Basophils % 0.7 % (0.0-0.8); Eosinophils # 0.4 10*3/uL (0.0-0.87); Eosinophils % 4.1 % (0.00-10.9); Hematocrit 34.2 VOL% (35.7-47.0); Hemoglobin 10.9 GM/DL (12.0-16.0); Immature Granulocytes % 0.3 %; Immature Granulocytes Absolute 0.03 #; Lymphocytes # 2.8 10*3/uL (1.4-4.0); Lymphocytes % 32.8 % (21.3-54.2); Mean Corpuscular HGB Conc 31.9 GM/DL (32-36); Mean Corpuscular Volume 89.8 FL (87-102); Mean Platelet Volume 10.7 FL (9.6-12.0); Monocytes % 12.4 % (1.7-12.7); Neutrophils % 49.7 % (38.7-73.9); Platelet Count 149 T/CUMM (130-400); Red Blood Count 3.81 MC/CUMM (3.8-5.5); Red Cell Distribution Width 13.7 % (9.3-17.3); White Blood Count 8.6 T/CUMM (4-12)
[2021-08-09 06:16] LABS: Albumin 3.1 G/DL (3.4-5.0); Bilirubin,Total 1.7 MG/DL (0.20-1.00); Calcium 8.6 MG/DL (8.5-10.1); Osmolality,Calculated 283.1 MOS/KG (273-304); Potassium 3.2 MMOL/L (3.5-5.1); Total Protein 6.9 G/DL (6.4-8.2)
[2021-08-09] MEDS ORDERED: POTASSIUM CHLORIDE RIDER 10 MEQ/100 ML PREMIX IV PRN (07:41)
[2021-08-09] MEDS: hydrALAZINE 20 MG/1 ML VIAL IV PRN ×2 (08:49→17:09)
[2021-08-09] MEDS: LACTATED RINGERS 1,000 ML IV SCH (14:51)
[2021-08-09] MEDS: VANCOMYCIN INJ 750 MG in SODIUM CHLORIDE 0.9% 250 ML IV SCH ×2 (14:55→21:33)
[2021-08-09 14:59] LABS: Lymphocytes,CSF 80 %; Monocytes,CSF 20 %
[2021-08-09 15:00] LABS: Appearance,CSF Clear; Red Blood Cell,CSF 2 C/CUMM; White Blood Cell,CSF 5 C/CUMM
[2021-08-09 15:07] LABS: Glucose,CSF 55 MG/DL (40-70)
[2021-08-09] MEDS ORDERED: MAGNESIUM SULF RIDER 4 GM/100 ML PREMIX IV ONE ×2 (16:58→23:00)
[2021-08-09] MEDS ORDERED: LACTATED RINGERS 250 ML IV ONE (17:38)
[2021-08-09] MEDS: cefTRIAXone 2,000 MG in SODIUM CHLORIDE 0.9% 100 ML IV SCH (18:49)
[2021-08-09 19:14] LABS: HIV Antigen/Antibody Result Nonreactive (Nonreactive)
[2021-08-09] MEDS ORDERED: ATORVASTATIN 40 MG TABLET PO SCH (21:00)
[2021-08-09] MEDS: ACETAMINOPHEN 325 MG TABLET PO PRN (21:35)
[2021-08-09] MEDS: ATORVASTATIN 80 MG TABLET PO SCH (21:36)
[2021-08-09] MEDS: METOPROLOL TARTRATE 50 MG TABLET PO SCH (21:36)
[2021-08-10] MEDS: ACYCLOVIR INJ 500 MG in SODIUM CHLORIDE 0.9% 100 ML IV SCH ×2 (00:38→05:30)
[2021-08-10] MEDS: LACTATED RINGERS 1,000 ML IV SCH ×2 (00:45→05:30)
[2021-08-10] MEDS: ALBUTEROL/IPRATROPIUM 3 ML NEB RESP TX SCH ×5 (00:50→19:14)
[2021-08-10] MEDS: LORazepam 2 MG/1 ML VIAL IV PRN ×3 (01:38→23:24)
[2021-08-10] MEDS: cefTRIAXone 2,000 MG in SODIUM CHLORIDE 0.9% 100 ML IV SCH ×2 (03:18→20:58)
[2021-08-10 05:18] LABS: Basophils # 0.1 10*3/uL (0.0-0.2); Basophils % 0.5 % (0.0-0.8); Eosinophils # 0.3 10*3/uL (0.0-0.87); Eosinophils % 3.4 % (0.00-10.9); Hematocrit 35.2 VOL% (35.7-47.0); Hemoglobin 11.3 GM/DL (12.0-16.0); Immature Granulocytes % 0.3 %; Immature Granulocytes Absolute 0.03 #; Lymphocytes # 3.7 10*3/uL (1.4-4.0); Lymphocytes % 37.3 % (21.3-54.2); Mean Corpuscular HGB Conc 32.1 GM/DL (32-36); Mean Corpuscular Volume 89.3 FL (87-102); Mean Platelet Volume 10.9 FL (9.6-12.0); Monocytes % 8.8 % (1.7-12.7); Neutrophils % 49.7 % (38.7-73.9); Platelet Count 193 T/CUMM (130-400); Red Blood Count 3.94 MC/CUMM (3.8-5.5); Red Cell Distribution Width 13.5 % (9.3-17.3); White Blood Count 9.9 T/CUMM (4-12)
[2021-08-10 05:49] LABS: Anisocytosis 2+; Burr Cells Few; Elliptocytes 1+; Hypochromasia 1+
[2021-08-10] MEDS: PANTOPRAZOLE 40 MG VIAL IV SCH (05:58)
[2021-08-10 06:13] LABS: Risk Ratio 3.45; VLDL Cholesterol 27.4 MG/DL
[2021-08-10 07:07] LABS: Calcium 8.6 MG/DL (8.5-10.1); Osmolality,Calculated 279.3 MOS/KG (273-304); Potassium 3.2 MMOL/L (3.5-5.1)
[2021-08-10] MEDS: GABAPENTIN 300 MG CAPSULE PO SCH ×2 (08:32→20:57)
[2021-08-10] MEDS: ASPIRIN EC 81 MG TABLET PO SCH (08:32)
[2021-08-10] MEDS: METOPROLOL TARTRATE 50 MG TABLET PO SCH ×2 (08:32→20:57)
[2021-08-10] MEDS: HEPARIN 5,000 UNIT/1 ML VIAL SUBCUT SCH ×2 (08:33→20:58)
[2021-08-10] MEDS: SODIUM BICARB INJ 50 MEQ in DEXTROSE 5% NACL 0.45% 1,000 ML IV SCH (10:54)
[2021-08-10] MEDS: VANCOMYCIN INJ 750 MG in SODIUM CHLORIDE 0.9% 250 ML IV SCH ×2 (10:55→23:24)
[2021-08-10] MEDS: AZITHROMYCIN INJ 500 MG in SODIUM CHLORIDE 0.9% 250 ML IV SCH (12:39)
[2021-08-10] MEDS: POTASSIUM CHLORIDE 20 MEQ TABLET PO PRN ×2 (14:33→16:18)
[2021-08-10 17:16] LABS: CSF Crypto neoforman/gatti PCR Negative (Negative); CSF Cytomegalovirus PCR Negative (Negative); CSF Enterovirus PCR Negative (Negative); CSF Escherichia coli K1 PCR Negative (Negative); CSF Haemophilus influenzae PCR Negative (Negative); CSF Herpes Simplex Virus 1 PCR Negative (Negative); CSF Herpes Simplex Virus 2 PCR Negative (Negative); CSF Human Herpes Virus 6 PCR Negative (Negative); CSF Human Parechovirus PCR Negative (Negative); CSF Listeria monocytogenes PCR Negative (Negative); CSF Neisseria meningitidis PCR Negative (Negative); CSF Streptococcus agalacti PCR Negative (Negative); CSF Streptococcus pneumon PCR Negative (Negative); CSF Varicella Zoster Virus PCR Negative (Negative); Specimen source CEREBROSPINAL FLUID
[2021-08-10] MEDS: ATORVASTATIN 80 MG TABLET PO SCH (20:57)
[2021-08-10] MEDS: HydrOXYzine PAMOATE 50 MG CAPSULE PO SCH (20:57)
[2021-08-11] MEDS: SODIUM BICARB INJ 50 MEQ in DEXTROSE 5% NACL 0.45% 1,000 ML IV SCH (01:29)
[2021-08-11] MEDS: ALBUTEROL/IPRATROPIUM 3 ML NEB RESP TX SCH ×4 (01:31→21:02)
[2021-08-11 05:42] LABS: Basophils # 0.1 10*3/uL (0.0-0.2); Basophils % 0.8 % (0.0-0.8); Eosinophils # 0.5 10*3/uL (0.0-0.87); Eosinophils % 7.5 % (0.00-10.9); Hematocrit 29.7 VOL% (35.7-47.0); Hemoglobin 9.6 GM/DL (12.0-16.0); Immature Granulocytes % 0.3 %; Immature Granulocytes Absolute 0.02 #; Lymphocytes # 2.6 10*3/uL (1.4-4.0); Lymphocytes % 42.4 % (21.3-54.2); Mean Corpuscular HGB Conc 32.3 GM/DL (32-36); Mean Corpuscular Volume 88.1 FL (87-102); Mean Platelet Volume 10.7 FL (9.6-12.0); Monocytes % 9.8 % (1.7-12.7); Neutrophils % 39.2 % (38.7-73.9); Platelet Count 165 T/CUMM (130-400); Red Blood Count 3.37 MC/CUMM (3.8-5.5); Red Cell Distribution Width 14.1 % (9.3-17.3); White Blood Count 6.2 T/CUMM (4-12)
[2021-08-11 06:04] LABS: Calcium 8.4 MG/DL (8.5-10.1); Osmolality,Calculated 282.8 MOS/KG (273-304); Potassium 2.7 MMOL/L (3.5-5.1)
[2021-08-11] MEDS: LORazepam 2 MG/1 ML VIAL IV PRN ×3 (09:03→19:57)
[2021-08-11] MEDS: PANTOPRAZOLE 40 MG VIAL IV SCH (09:05)
[2021-08-11] MEDS: POTASSIUM CHLORIDE 20 MEQ TABLET PO SCH ×3 (09:06→15:27)
[2021-08-11] MEDS: METOPROLOL TARTRATE 50 MG TABLET PO SCH ×2 (09:06→21:51)
[2021-08-11] MEDS: ASPIRIN EC 81 MG TABLET PO SCH (09:06)
[2021-08-11] MEDS: GABAPENTIN 300 MG CAPSULE PO SCH ×2 (09:06→21:51)
[2021-08-11] MEDS: cefTRIAXone 2,000 MG in SODIUM CHLORIDE 0.9% 100 ML IV SCH ×2 (09:07→21:54)
[2021-08-11] MEDS: VANCOMYCIN INJ 750 MG in SODIUM CHLORIDE 0.9% 250 ML IV SCH ×2 (09:16→22:40)
[2021-08-11] MEDS: HEPARIN 5,000 UNIT/1 ML VIAL SUBCUT SCH ×2 (09:18→21:53)
[2021-08-11] MEDS: AZITHROMYCIN INJ 500 MG in SODIUM CHLORIDE 0.9% 250 ML IV SCH (11:36)
[2021-08-11] MEDS ORDERED: OLANZapine 10 MG VIAL IM ONE (15:14)
[2021-08-11] MEDS ORDERED: LOPERAMIDE 2 MG CAPSULE PO PRN (17:58)
[2021-08-11] MEDS: ATORVASTATIN 80 MG TABLET PO SCH (21:51)
[2021-08-11] MEDS: HydrOXYzine PAMOATE 50 MG CAPSULE PO SCH (21:51)
[2021-08-12] MEDS: ALBUTEROL/IPRATROPIUM 3 ML NEB RESP TX SCH ×4 (01:10→19:42)
[2021-08-12] MEDS: PANTOPRAZOLE 40 MG VIAL IV SCH (13:14)
[2021-08-12] MEDS: METOPROLOL TARTRATE 50 MG TABLET PO SCH ×2 (13:15→21:21)
[2021-08-12] MEDS: ASPIRIN EC 81 MG TABLET PO SCH (13:15)
[2021-08-12] MEDS: cefTRIAXone 2,000 MG in SODIUM CHLORIDE 0.9% 100 ML IV SCH ×2 (13:15→21:24)
[2021-08-12] MEDS: GABAPENTIN 300 MG CAPSULE PO SCH ×2 (13:15→21:21)
[2021-08-12] MEDS: HEPARIN 5,000 UNIT/1 ML VIAL SUBCUT SCH ×2 (13:15→21:24)
[2021-08-12] MEDS: AZITHROMYCIN INJ 500 MG in SODIUM CHLORIDE 0.9% 250 ML IV SCH (13:16)
[2021-08-12] MEDS: VANCOMYCIN INJ 750 MG in SODIUM CHLORIDE 0.9% 250 ML IV SCH (13:16)
[2021-08-12] MEDS: LORazepam 2 MG/1 ML VIAL IV PRN ×3 (13:16→21:20)
[2021-08-12 15:04] LABS: Calcium 8.8 MG/DL (8.5-10.1); Osmolality,Calculated 276.4 MOS/KG (273-304); Potassium 3.5 MMOL/L (3.5-5.1)
[2021-08-12 15:52] LABS: Basophils % 0.5 % (0.0-0.8); Eosinophils # 0.3 10*3/uL (0.0-0.87); Eosinophils % 3.5 % (0.00-10.9); Hematocrit 33.5 VOL% (35.7-47.0); Hemoglobin 11.1 GM/DL (12.0-16.0); Immature Granulocytes % 0.4 %; Immature Granulocytes Absolute 0.03 #; Lymphocytes # 3.2 10*3/uL (1.4-4.0); Lymphocytes % 38.5 % (21.3-54.2); Mean Corpuscular HGB Conc 33.1 GM/DL (32-36); Mean Corpuscular Volume 86.8 FL (87-102); Mean Platelet Volume 10.4 FL (9.6-12.0); Monocytes % 10.7 % (1.7-12.7); Neutrophils % 46.4 % (38.7-73.9); Platelet Count 184 T/CUMM (130-400); Red Blood Count 3.86 MC/CUMM (3.8-5.5); White Blood Count 8.4 T/CUMM (4-12)
[2021-08-12] MEDS: ACETAMINOPHEN 325 MG TABLET PO PRN (16:15)
[2021-08-12] MEDS: ATORVASTATIN 80 MG TABLET PO SCH (21:21)
[2021-08-12] MEDS: HydrOXYzine PAMOATE 50 MG CAPSULE PO SCH (21:22)
[2021-08-13] MEDS: ALBUTEROL/IPRATROPIUM 3 ML NEB RESP TX SCH ×4 (00:45→20:25)
[2021-08-13] MEDS: PANTOPRAZOLE 40 MG VIAL IV SCH (06:05)
[2021-08-13 06:06] LABS: Basophils % 0.4 % (0.0-0.8); Eosinophils # 0.3 10*3/uL (0.0-0.87); Eosinophils % 4.1 % (0.00-10.9); Hematocrit 32.8 VOL% (35.7-47.0); Hemoglobin 10.7 GM/DL (12.0-16.0); Immature Granulocytes % 0.3 %; Immature Granulocytes Absolute 0.02 #; Lymphocytes # 2.5 10*3/uL (1.4-4.0); Lymphocytes % 35.2 % (21.3-54.2); Mean Corpuscular HGB Conc 32.6 GM/DL (32-36); Mean Corpuscular Volume 88.2 FL (87-102); Mean Platelet Volume 11.4 FL (9.6-12.0); Monocytes % 9.4 % (1.7-12.7); Neutrophils % 50.6 % (38.7-73.9); Platelet Count 197 T/CUMM (130-400); Red Blood Count 3.72 MC/CUMM (3.8-5.5); Red Cell Distribution Width 14.1 % (9.3-17.3); White Blood Count 7.2 T/CUMM (4-12)
[2021-08-13 06:34] LABS: Calcium 8.9 MG/DL (8.5-10.1); Osmolality,Calculated 280.1 MOS/KG (273-304); Potassium 3.1 MMOL/L (3.5-5.1)
[2021-08-13] MEDS: cefTRIAXone 2,000 MG in SODIUM CHLORIDE 0.9% 100 ML IV SCH ×2 (09:39→21:50)
[2021-08-13] MEDS: ASPIRIN EC 81 MG TABLET PO SCH (09:40)
[2021-08-13] MEDS: METOPROLOL TARTRATE 50 MG TABLET PO SCH ×2 (09:40→21:51)
[2021-08-13] MEDS: GABAPENTIN 300 MG CAPSULE PO SCH ×2 (09:40→21:50)
[2021-08-13] MEDS: HEPARIN 5,000 UNIT/1 ML VIAL SUBCUT SCH (09:40)
[2021-08-13] MEDS: SODIUM BICARBONATE 650 MG TABLET PO SCH (09:40)
[2021-08-13 12:26] LABS: West Nile Virus Ab, IgG, CSF Negative (Negative); West Nile Virus Ab, IgM, CSF Negative (Negative)
[2021-08-13] MEDS: AZITHROMYCIN INJ 500 MG in SODIUM CHLORIDE 0.9% 250 ML IV SCH (13:50)
[2021-08-13] MEDS: LORazepam 2 MG/1 ML VIAL IV PRN ×2 (16:40→21:20)
[2021-08-13] MEDS ORDERED: POTASSIUM CHLORIDE 20 MEQ TABLET PO ONE (16:50)
[2021-08-13] MEDS: ACETAMINOPHEN 325 MG TABLET PO PRN (18:41)
[2021-08-13] MEDS: HydrOXYzine PAMOATE 50 MG CAPSULE PO SCH (21:50)
[2021-08-13] MEDS: ATORVASTATIN 80 MG TABLET PO SCH (21:50)
[2021-08-13] MEDS: APIXABAN 5 MG TABLET PO SCH (21:51)
[2021-08-14] MEDS: ALBUTEROL/IPRATROPIUM 3 ML NEB RESP TX SCH ×3 (00:53→20:05)
[2021-08-14] MEDS: LORazepam 2 MG/1 ML VIAL IV PRN ×2 (05:11→18:44)
[2021-08-14] MEDS: PANTOPRAZOLE 40 MG VIAL IV SCH (05:45)
[2021-08-14 06:59] LABS: Basophils % 0.4 % (0.0-0.8); Eosinophils # 0.5 10*3/uL (0.0-0.87); Eosinophils % 5.2 % (0.00-10.9); Hematocrit 37.5 VOL% (35.7-47.0); Immature Granulocytes % 0.5 %; Immature Granulocytes Absolute 0.05 #; Lymphocytes # 2.3 10*3/uL (1.4-4.0); Lymphocytes % 22.3 % (21.3-54.2); Mean Corpuscular Volume 89.3 FL (87-102); Mean Platelet Volume 10.9 FL (9.6-12.0); Monocytes % 8.7 % (1.7-12.7); Neutrophils % 62.9 % (38.7-73.9); Platelet Count 214 T/CUMM (130-400); Red Cell Distribution Width 14.5 % (9.3-17.3); White Blood Count 10.3 T/CUMM (4-12)
[2021-08-14 07:26] LABS: Calcium 8.7 MG/DL (8.5-10.1); Osmolality,Calculated 277.5 MOS/KG (273-304); Potassium 3.8 MMOL/L (3.5-5.1)
[2021-08-14 07:27] LABS: Calcium 8.9 MG/DL (8.5-10.1); Osmolality,Calculated 276.5 MOS/KG (273-304); Potassium 3.9 MMOL/L (3.5-5.1)
[2021-08-14] MEDS: APIXABAN 5 MG TABLET PO SCH ×2 (08:05→20:23)
[2021-08-14] MEDS: METOPROLOL TARTRATE 50 MG TABLET PO SCH ×2 (08:05→20:23)
[2021-08-14] MEDS: ASPIRIN EC 81 MG TABLET PO SCH (08:05)
[2021-08-14] MEDS: GABAPENTIN 300 MG CAPSULE PO SCH ×2 (08:06→20:22)
[2021-08-14] MEDS: SODIUM BICARBONATE 650 MG TABLET PO SCH (08:06)
[2021-08-14] MEDS: cefTRIAXone 2,000 MG in SODIUM CHLORIDE 0.9% 100 ML IV SCH ×2 (08:06→20:22)
[2021-08-14] MEDS ORDERED: MAGNESIUM SULF RIDER 2 GM/50 ML PREMIX IV ONE (09:00)
[2021-08-14] MEDS: AZITHROMYCIN INJ 500 MG in SODIUM CHLORIDE 0.9% 250 ML IV SCH (13:17)
[2021-08-14] MEDS ORDERED: HALOPERIDOL 5 MG/ML AMP IM ONE (17:00)
[2021-08-14] MEDS: ATORVASTATIN 80 MG TABLET PO SCH (20:22)
[2021-08-14] MEDS: HydrOXYzine PAMOATE 50 MG CAPSULE PO SCH (20:22)
[2021-08-14] MEDS: HALOPERIDOL 1 MG TABLET PO SCH (20:23)
[2021-08-14] MEDS: ACETAMINOPHEN 325 MG TABLET PO PRN (20:23)
[2021-08-15] MEDS: ALBUTEROL/IPRATROPIUM 3 ML NEB RESP TX SCH ×4 (01:00→19:17)
[2021-08-15] MEDS: LORazepam 2 MG/1 ML VIAL IV PRN ×2 (02:26→22:00)
[2021-08-15 03:17] LABS: Basophils # 0.1 10*3/uL (0.0-0.2); Basophils % 0.6 % (0.0-0.8); Eosinophils # 0.7 10*3/uL (0.0-0.87); Eosinophils % 5.8 % (0.00-10.9); Hematocrit 35.5 VOL% (35.7-47.0); Hemoglobin 11.4 GM/DL (12.0-16.0); Immature Granulocytes % 0.3 %; Immature Granulocytes Absolute 0.03 #; Mean Corpuscular HGB Conc 32.1 GM/DL (32-36); Mean Corpuscular Volume 88.5 FL (87-102); Monocytes % 8.8 % (1.7-12.7); Neutrophils % 48.5 % (38.7-73.9); Platelet Count 238 T/CUMM (130-400); Red Blood Count 4.01 MC/CUMM (3.8-5.5); Red Cell Distribution Width 14.5 % (9.3-17.3); White Blood Count 11.2 T/CUMM (4-12)
[2021-08-15 03:35] LABS: Calcium 8.7 MG/DL (8.5-10.1); Osmolality,Calculated 279.3 MOS/KG (273-304)
[2021-08-15] MEDS: PANTOPRAZOLE 40 MG VIAL IV SCH (05:35)
[2021-08-15] MEDS: cefTRIAXone 2,000 MG in SODIUM CHLORIDE 0.9% 100 ML IV SCH ×2 (09:39→21:11)
[2021-08-15] MEDS: ASPIRIN EC 81 MG TABLET PO SCH (09:39)
[2021-08-15] MEDS: HALOPERIDOL 1 MG TABLET PO SCH ×2 (09:39→21:02)
[2021-08-15] MEDS: SODIUM BICARBONATE 650 MG TABLET PO SCH (09:39)
[2021-08-15] MEDS: GABAPENTIN 300 MG CAPSULE PO SCH ×2 (09:39→21:03)
[2021-08-15] MEDS: METOPROLOL TARTRATE 50 MG TABLET PO SCH ×2 (09:39→21:02)
[2021-08-15] MEDS: APIXABAN 5 MG TABLET PO SCH ×2 (09:39→21:02)
[2021-08-15 15:19] LABS: Folate 7.61 NG/ML (5.38-24.0)
[2021-08-15] MEDS: HydrOXYzine PAMOATE 50 MG CAPSULE PO SCH (21:02)
[2021-08-15] MEDS: ATORVASTATIN 80 MG TABLET PO SCH (21:03)
[2021-08-16] MEDS: ALBUTEROL/IPRATROPIUM 3 ML NEB RESP TX SCH ×4 (00:49→20:52)
[2021-08-16] MEDS: LORazepam 2 MG/1 ML VIAL IV PRN ×3 (02:07→16:36)
[2021-08-16] MEDS: PANTOPRAZOLE 40 MG VIAL IV SCH (05:44)
[2021-08-16] MEDS: HALOPERIDOL 1 MG TABLET PO SCH ×2 (08:31→20:53)
[2021-08-16] MEDS: APIXABAN 5 MG TABLET PO SCH ×2 (08:31→20:52)
[2021-08-16] MEDS: METOPROLOL TARTRATE 50 MG TABLET PO SCH ×2 (08:31→20:53)
[2021-08-16] MEDS: SODIUM BICARBONATE 650 MG TABLET PO SCH (08:31)
[2021-08-16] MEDS: GABAPENTIN 300 MG CAPSULE PO SCH ×2 (08:31→20:53)
[2021-08-16] MEDS: ASPIRIN EC 81 MG TABLET PO SCH (08:31)
[2021-08-16] MEDS: cefTRIAXone 2,000 MG in SODIUM CHLORIDE 0.9% 100 ML IV SCH ×2 (08:32→20:50)
[2021-08-16] MEDS: IRON (CARBONYL) 45 MG TABLET PO SCH (14:21)
[2021-08-16] MEDS: hydrALAZINE 20 MG/1 ML VIAL IV PRN (16:35)
[2021-08-16] MEDS: HydrOXYzine PAMOATE 50 MG CAPSULE PO SCH (20:53)
[2021-08-16] MEDS: ATORVASTATIN 80 MG TABLET PO SCH (20:53)
[2021-08-17] MEDS: LORazepam 2 MG/1 ML VIAL IV PRN ×2 (00:26→17:50)
[2021-08-17] MEDS: ALBUTEROL/IPRATROPIUM 3 ML NEB RESP TX SCH ×4 (01:49→20:50)
[2021-08-17] MEDS: PANTOPRAZOLE 40 MG VIAL IV SCH (05:30)
[2021-08-17 07:22] LABS: Basophils % 0.4 % (0.0-0.8); Eosinophils # 0.2 10*3/uL (0.0-0.87); Eosinophils % 1.8 % (0.00-10.9); Hematocrit 35.2 VOL% (35.7-47.0); Hemoglobin 11.4 GM/DL (12.0-16.0); Immature Granulocytes % 0.4 %; Immature Granulocytes Absolute 0.04 #; Lymphocytes # 3.2 10*3/uL (1.4-4.0); Lymphocytes % 32.5 % (21.3-54.2); Mean Corpuscular HGB Conc 32.4 GM/DL (32-36); Mean Corpuscular Volume 88.9 FL (87-102); Mean Platelet Volume 11.1 FL (9.6-12.0); Monocytes % 8.4 % (1.7-12.7); Neutrophils % 56.5 % (38.7-73.9); Platelet Count 252 T/CUMM (130-400); Red Blood Count 3.96 MC/CUMM (3.8-5.5); Red Cell Distribution Width 14.4 % (9.3-17.3); White Blood Count 9.8 T/CUMM (4-12)
[2021-08-17 08:05] LABS: Calcium 9.3 MG/DL (8.5-10.1); Potassium 3.5 MMOL/L (3.5-5.1)
[2021-08-17] MEDS: DIVALPROEX 500 MG TABLET PO SCH (09:18)
[2021-08-17] MEDS: ASPIRIN EC 81 MG TABLET PO SCH (09:18)
[2021-08-17] MEDS: APIXABAN 5 MG TABLET PO SCH ×2 (09:18→21:33)
[2021-08-17] MEDS: IRON (CARBONYL) 45 MG TABLET PO SCH (09:18)
[2021-08-17] MEDS: HALOPERIDOL 1 MG TABLET PO SCH ×2 (09:18→21:33)
[2021-08-17] MEDS: SODIUM BICARBONATE 650 MG TABLET PO SCH (09:19)
[2021-08-17] MEDS: GABAPENTIN 300 MG CAPSULE PO SCH ×2 (09:19→21:33)
[2021-08-17] MEDS: METOPROLOL TARTRATE 50 MG TABLET PO SCH ×2 (09:19→21:33)
[2021-08-17] MEDS: POTASSIUM CHLORIDE 20 MEQ TABLET PO PRN ×2 (21:33→23:40)
[2021-08-17] MEDS: ATORVASTATIN 80 MG TABLET PO SCH (21:33)
[2021-08-17] MEDS: ACETAMINOPHEN 325 MG TABLET PO PRN (21:33)
[2021-08-17] MEDS: HydrOXYzine PAMOATE 50 MG CAPSULE PO SCH (21:33)
[2021-08-18] MEDS: LORazepam 2 MG/1 ML VIAL IV PRN ×2 (00:11→10:25)
[2021-08-18] MEDS: ALBUTEROL/IPRATROPIUM 3 ML NEB RESP TX SCH ×4 (01:00→19:05)
[2021-08-18] MEDS: PANTOPRAZOLE 40 MG VIAL IV SCH (06:18)
[2021-08-18] MEDS: HALOPERIDOL 1 MG TABLET PO SCH ×2 (08:45→23:12)
[2021-08-18] MEDS: DIVALPROEX 500 MG TABLET PO SCH (08:45)
[2021-08-18] MEDS: GABAPENTIN 300 MG CAPSULE PO SCH ×2 (08:45→23:12)
[2021-08-18] MEDS: IRON (CARBONYL) 45 MG TABLET PO SCH (08:45)
[2021-08-18] MEDS: SODIUM BICARBONATE 650 MG TABLET PO SCH (08:45)
[2021-08-18] MEDS: APIXABAN 5 MG TABLET PO SCH ×2 (08:46→23:12)
[2021-08-18] MEDS: ASPIRIN EC 81 MG TABLET PO SCH (08:46)
[2021-08-18] MEDS: METOPROLOL TARTRATE 50 MG TABLET PO SCH ×2 (08:47→23:11)
[2021-08-18] MEDS: HydrOXYzine PAMOATE 50 MG CAPSULE PO SCH (23:12)
[2021-08-18] MEDS: ATORVASTATIN 80 MG TABLET PO SCH (23:12)
[2021-08-19] MEDS: ALBUTEROL/IPRATROPIUM 3 ML NEB RESP TX SCH ×4 (01:50→20:40)
[2021-08-19] MEDS: ACETAMINOPHEN 325 MG TABLET PO PRN (04:11)
[2021-08-19 05:46] LABS: Basophils % 0.4 % (0.0-0.8); Eosinophils # 0.1 10*3/uL (0.0-0.87); Eosinophils % 0.5 % (0.00-10.9); Hematocrit 36.4 VOL% (35.7-47.0); Hemoglobin 11.8 GM/DL (12.0-16.0); Immature Granulocytes % 0.6 %; Immature Granulocytes Absolute 0.06 #; Lymphocytes # 3.6 10*3/uL (1.4-4.0); Mean Corpuscular HGB Conc 32.4 GM/DL (32-36); Mean Corpuscular Volume 87.9 FL (87-102); Mean Platelet Volume 10.3 FL (9.6-12.0); Monocytes % 10.4 % (1.7-12.7); Neutrophils % 54.1 % (38.7-73.9); Platelet Count 304 T/CUMM (130-400); Red Blood Count 4.14 MC/CUMM (3.8-5.5); Red Cell Distribution Width 14.2 % (9.3-17.3); White Blood Count 10.6 T/CUMM (4-12)
[2021-08-19 06:06] LABS: Calcium 9.7 MG/DL (8.5-10.1); Osmolality,Calculated 270.1 MOS/KG (273-304); Potassium 3.5 MMOL/L (3.5-5.1)
[2021-08-19 06:19] LABS: Hypochromasia 1+; Microcytosis 1+; Platelet Estimate Adequate
[2021-08-19] MEDS: PANTOPRAZOLE 40 MG VIAL IV SCH (06:20)
[2021-08-19] MEDS ORDERED: LORazepam 2 MG/1 ML VIAL ONE (07:31)
[2021-08-19] MEDS: LORazepam 2 MG/1 ML VIAL IV PRN (07:33)
[2021-08-19] MEDS: GABAPENTIN 300 MG CAPSULE PO SCH ×2 (08:49→23:05)
[2021-08-19] MEDS: APIXABAN 5 MG TABLET PO SCH ×2 (08:49→23:05)
[2021-08-19] MEDS: DIVALPROEX 500 MG TABLET PO SCH (08:49)
[2021-08-19] MEDS: HALOPERIDOL 1 MG TABLET PO SCH ×2 (08:49→23:04)
[2021-08-19] MEDS: SODIUM BICARBONATE 650 MG TABLET PO SCH (08:49)
[2021-08-19] MEDS: IRON (CARBONYL) 45 MG TABLET PO SCH (08:50)
[2021-08-19] MEDS: METOPROLOL TARTRATE 50 MG TABLET PO SCH ×2 (08:50→23:05)
[2021-08-19] MEDS: ASPIRIN EC 81 MG TABLET PO SCH (08:50)
[2021-08-19] MEDS ORDERED: SODIUM CHLORIDE 0.9% 500 ML IV ONE (14:51)
[2021-08-19] MEDS: ATORVASTATIN 80 MG TABLET PO SCH (23:05)
[2021-08-19] MEDS: HydrOXYzine PAMOATE 50 MG CAPSULE PO SCH (23:05)
[2021-08-20] MEDS: ACETAMINOPHEN 325 MG TABLET PO PRN (00:26)
[2021-08-20] MEDS: ALBUTEROL/IPRATROPIUM 3 ML NEB RESP TX SCH (01:00)
[2021-08-20 04:58] LABS: Basophils % 0.4 % (0.0-0.8); Eosinophils % 0.2 % (0.00-10.9); Hematocrit 34.6 VOL% (35.7-47.0); Hemoglobin 11.2 GM/DL (12.0-16.0); Immature Granulocytes % 0.4 %; Immature Granulocytes Absolute 0.04 #; Lymphocytes # 2.6 10*3/uL (1.4-4.0); Lymphocytes % 27.8 % (21.3-54.2); Mean Corpuscular HGB Conc 32.4 GM/DL (32-36); Mean Corpuscular Volume 88.3 FL (87-102); Mean Platelet Volume 10.4 FL (9.6-12.0); Monocytes % 10.3 % (1.7-12.7); Neutrophils % 60.9 % (38.7-73.9); Platelet Count 309 T/CUMM (130-400); Red Blood Count 3.92 MC/CUMM (3.8-5.5); Red Cell Distribution Width 14.1 % (9.3-17.3); White Blood Count 9.5 T/CUMM (4-12)
[2021-08-20 05:17] LABS: Calcium 9.5 MG/DL (8.5-10.1); Osmolality,Calculated 277.7 MOS/KG (273-304); Potassium 3.2 MMOL/L (3.5-5.1)
[2021-08-20] MEDS: PANTOPRAZOLE 40 MG VIAL IV SCH (07:34)
[2021-08-20] MEDS: GABAPENTIN 300 MG CAPSULE PO SCH (08:47)
[2021-08-20] MEDS: ASPIRIN EC 81 MG TABLET PO SCH (08:47)
[2021-08-20] MEDS: APIXABAN 5 MG TABLET PO SCH (08:47)
[2021-08-20] MEDS: METOPROLOL TARTRATE 50 MG TABLET PO SCH (08:47)
[2021-08-20] MEDS: SODIUM BICARBONATE 650 MG TABLET PO SCH (08:47)
[2021-08-20] MEDS: HALOPERIDOL 1 MG TABLET PO SCH (08:47)
[2021-08-20] MEDS: IRON (CARBONYL) 45 MG TABLET PO SCH (08:48)
[2021-08-20] MEDS: DIVALPROEX 500 MG TABLET PO SCH (08:48)
[2021-08-20] MEDS: POTASSIUM CHLORIDE 20 MEQ TABLET PO PRN (11:06)
[2021-08-20 11:50] VITALS: BP 124/52
[2021-08-20 12:42] LABS: DRVVT Screen Ratio 2.63 ratio (<1.20); INR 1.2 (0.9-1.1)
[2021-08-20] MEDS ORDERED: POTASSIUM CHLORIDE 20 MEQ TABLET PO ONE (13:00)
[2021-08-24 08:51] LABS: DRVVT Confirmation 1.38 ratio (<1.20); Platelet Neutralization Proced 44; Thrombin Time (Bovine), P 23.1 sec
== END 2021-08-20 13:21 | DRG 885 ==
LOC: EDBD → EDUNIT# → N.ED 13:25 → SUATTDRO 19:28 → N.EDINP 19:28 → N.5E 21:50
PROVIDERS: ADMIT Internal Medicine; ATTEND Internal Medicine